=== PATIENT | male | born 1940 | race Caucasian/White ===

== ENCOUNTER 2016-10-21 14:09 | Inpatient (IN) | payer MEDICARE, OTHER ==
[2016-10-21] VITALS (15 sets, daily range): BP systolic 93–119; BP diastolic 58–86; PULSE 65–75; RESP 19–26; O2SAT 93–96
[~2016-10-21] VITALS: Ht 167.6 cm; Wt 68.4 kg
[2016-10-21] MEDS ORDERED: Heparin 1,000 Units/500 mL NS Premix IV ONE (14:23)
[2016-10-21] MEDS ORDERED: Nitroglycerin 50,000 mcg/250 mL D5W Premix IV ONE (14:23)
[2016-10-21] MEDS ORDERED: Heparin 1,000 Unit/mL 10 mL Inj ONE (14:23)
[2016-10-21] MEDS ORDERED: Dextrose 5% 250 ML IV ONE (14:23)
[2016-10-21] MEDS ORDERED: NitroPRUSSIDE 25,000 mCg/mL 2 mL Inj IV ONE (14:24)
[2016-10-21] MEDS ORDERED: 0.9% Sodium Chloride 2,000 ML ONE (14:24)
[2016-10-21] MEDS ORDERED: Heparin 10,000 Unit/1,000 mL NS Premix IV ONE (14:24)
--- NOTE | 2016-10-21 14:25 | ED.REPORT ---
HPI-Chest Pain 40 and Over Date of Service Oct 21, 2016 ED Provider: Dallas Waddell MD Nursing Notes Stated Complaint: STEMI Allergies: Coded Allergies: fentanyl (Verified Allergy, Mild, hyperactive, 10/21/16) General Time Seen by MD: 14:23 Dallas Waddell MD Oct 21, 2016 14:25
[2016-10-21] MEDS ORDERED: fentaNYL-PF 50 mCg/mL 2 mL Inj ONE (14:50)
[2016-10-21] MEDS ORDERED: Phenylephrine/NS-PF 100 mCg/mL 5 mL Syringe IVPUSH ONE (15:12)
[2016-10-21] MEDS ORDERED: Atropine 1 mg/10 mL (Code) Syringe ONE (15:13)
[2016-10-21 15:31] LABS: BASOPHILS % (AUTO) 0.2 % (0-3); EOSINOPHILS % (AUTO) 0 % (0-5); MONOCYTES % (AUTO) 9.2 % (4-12); Mean Corpuscular Hemoglobin 31.2 pg (27.0-35.0); Mean Corpuscular Volume 99.3 fL (81-100); NEUTROPHILS % (AUTO) 76.8 % (40-74); Platelet Count 181 bil/L (150-400)
[2016-10-21 15:50] LABS: INR 1.13 ratio
--- NOTE | 2016-10-21 16:03 | CONS ---
[address] [address] CONSULTATION REPORT PATIENT: BELGICA ARMAS : 1940 MR#: [id number] ADMIT: 10/21/2016 JOB ID: [id number] DATE OF SERVICE: 10/21/2016 CARDIOLOGY CONSULTATION: CHIEF COMPLAINT: Acute UT. HISTORY OF PRESENT ILLNESS: This patient was transferred from [facility]. He was brought in by ambulance. The ambulance transmitted an EKG showing acute anterolateral ST-segment elevation. The patient was brought directly to the laborer syrup machine. I interviewed him on the laborer syrup machine table. The patient was free of any chest discomfort. In fact, he did not remember having any chest discomfort whatsoever. The patient is a very poor historian. He stated that his called the ambulance and he is unsure as to why. He feels he may have had a syncopal event but cannot be sure. He can provide no meaningful history. He is otherwise alert, awake and oriented. PAST MEDICAL HISTORY: The patient denied any hypertension, diabetes, prior strokes, prior UT or any cardiac history. PERSONAL HISTORY: Used to work in the [employer], used to smoke and quit over 20 years ago. 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 After he got , he quit drinking. FAMILY HISTORY: Negative for premature coronary artery disease. PERSONAL HISTORY: Lives with his . He is retired. ALLERGIES: None. MEDICATIONS: The patient does not know. ROS: As per HPI, pt denied any strokes, GI/ bleeding PHYSICAL EXAMINATION: On examination, comfortable. No significant distress noted. Pulse 80, blood pressure 110/70. Neck: Supple. No JVD. Chest: Clear anteriorly. Heart sounds: S1, S2, regular. No gallops. Abdomen: Soft. Extremities: Negative for CCE. 2+ femoral pulses. BIOINFORMATICS ENGINEER: Awake, alert, and oriented. LABORATORIES: Pending. ASSESSMENT AND PLAN: This gentleman presents with an acute anterolateral myocardial infarction. His EKG shows persistent ST elevation. I explained the treatment options available to the patient. The risks and benefits of medical therapy as well as interventional therapy were explained. The patient verbalized understanding and gave us his verbal consent to proceed ahead with intervention. The details of the intervention are reported elsewhere. He will be admitted under the hospitalist service with Cardiology consulting. OLLIE
[2016-10-21 16:12] LABS: TROPONIN T 3.37 ug/L (0.0-0.011)
[2016-10-21] MEDS ORDERED: Polyethylene Glycol (PEG) 17 Gm Powder PO PRN (16:20)
[2016-10-21] MEDS ORDERED: Ondansetron 2 mg/mL 2 mL Inj IVPUSH PRN ×2 (16:20→16:45)
[2016-10-21] MEDS ORDERED: Alum-Mag Hydrox-Simeth 30 mL Suspension PO PRN (16:20)
--- NOTE | 2016-10-21 16:30 | PCM.HPMED ---
Subjective Date of Service Oct 21, 2016 Primary Provider: Admitting Physician: Primary Care Physician: Mahamed Ferrera MD Attending Physician: Ector Wall MD Admit Status: From the Emergency Department, [facility] Telemetry Chief Complaint: Chest pain/abnormal EKG History of Present Illness: Mitch Harmon is a 76 yo male with history of dementia, depression, and hypothyroidism who was transferred from his PCP office on [facility] via EMS for abnormal EKG. Patient has severe dementia and does not recall what happened. History is obtained through his . Apparently, the patient has had cold symptoms for 3 weeks. He went to his PCP's office for a routine checkup today. They were having a hard time taking his BP so they did an EKG, which showed acute anterolateral ST-segment elevation. Rate of 76. Patient's reports that the patient had some SOB, dizziness nausea, and vomiting x1 this morning. He told her that his chest "yi hurts," but was not in any distress. They deny history of cardiovascular disease or any similar symptoms in the past. The patient underwent cardiac catheterization and had a stent placement in the LAD. He denies any symptoms currently. No nausea, vomiting, headache, fever, chills, CP, or SOB. He takes Citalopram, baby ASA, and Levothyroxine at home. He used to take BP medication in the past but stopped for a long time since his BP has been normal. Patient is not on any medication for dementia. Review of Systems: A comprehensive ROS was conducted with the patient and his and is otherwise negative unless stated otherwise in the HPI. 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 He was then diagnosed with bone cancer stage IV and underwent chemo again. He has been in remission for 8 years now. HTN, not taking medication Hypothyroidism Dementia Depression Surgical History Back surgery Family History Father had an ID at unknown age. Social History Hx Alcohol Use: Yes (He was an alcoholic up until 1977. Not drinking currently. ) Hx Substance Use: No Hx Tobacco Use: Yes Smoking Status: Former Smoker (quit in 1987) Living Arrangement: with Family Additional Information Lives with in [place] Exam Vital Signs Vital Sign - Last Date Time Temp Pulse Resp B/P Pulse Ox O2 Delivery O2 Flow Rate FiO2 10/21/16 16:05 72 24 107/59 10/21/16 15:50 36.4 96 Room Air Exam General: well developed, well nourished, pleasantly demented, not in any acute distress HEENT: Normocephalic, atraumatic. External ears without defect. Pupils equal, round, and reactive to light and accommodation. Anicteric sclerae. Pale conjunctiva. Oropharynx free of erythema and cobble stoning with moist mucosa. Neck: Supple with full range of motion. No jugular venous distension. No bruits. Cardiovascular: Regular rate and rhythm no murmurs or gallops appreciated. Pulmonary: Clear to auscultation bilaterally with no crackles, wheezes, or rhonchi. Normal respiratory effort with no use of accessory muscles. No pain to palpation Abdomen: Bowel tones present. Soft, nontender, nondistended. No hepatosplenomegaly or masses appreciated. Extremities: No clubbing, cyanosis, or edema. Right groin access with minimal bleeding. Skin: Normal temperature, turgor, and texture. Neurological: Alert but only oriented to self. Significant decrease in short- term memory (baseline per his ). Cranial nerves grossly intact. Normal muscle strength, tone, and bulk. Moving all extremities. No sensory deficit. Psychiatric: Normal mood and affect. Lab and Diagnostics Result Diagram: 10/21/16 1527 10/21/16 1527 12-lead ECG Sinus rhythm at 76. ST-segment elevation in anterolateral leads. Assessment & Plan 76 yo male with history of dementia, depression, and hypothyroidism who was transferred from his PCP office on [facility] via EMS for STEMI onset prior to arrival. STEMI, POA, active. - s/p cardiac catheterization with LAD stent placement. - Patient has severe dementia and does not recall his symptoms. Currently asymptomatic. - Start dual-antiplatelet therapy with Plavix and ASA 81mg - Patient's BP is low and will hold off on beta blockage or ACEi - Check TSH and lipid panel - Start Atorvastatin 40mg daily - Echo in the morning. - Trend troponin. Currently at 3.37. - Monitor Telemetry - O2 and Morphine available PRN - Cardiac rehab at discharge ANISHA, POA, active. - No known history of kidney disease. Cr 1.66 on admission. - Continue IV fluid at 80mls/hr - Avoid nephrotoxic drugs - Follow clinically Normocytic anemia, POA, active. - unknown acuity. Hgb 8.7 on admission. - Patient is asymptomatic otherwise. - Follow clinically. Dementia, severe, chronic. - Patient is not on any medication. - Ativan PRN anxiety - Follow clinically Hypothyroidism, chronic, presume stable. - check TSH - Resume home medication Levothyroxine 100mcg daily Depression, chronic, presume stable. - Resume home Citalopram Tylenol prn fever/pain Zofran prn nausea Bowel Regimen prn constipation CODE STATUS: DNR/DNI which was confirmed with the patient and has . Patient is admitted under inpatient status with expected length of stay less than 2 midnights due to severity of presenting symptoms, risk of adverse events , and complexity of treatment plan. Pain Evaluation: Adequate Pain Control VTE Prophylaxis: Sub-Q Heparin (Unfractionated) VTE Mechanical Devices: Anti-Embolic stockings Resuscitation Status: DNR/DNI:Do Not Resuscitate/Intubate Time spent 50 minutes Attending Statement The patient was seen and examined with staff. Agree with all attached documentation. Ladonna Rowe DO Oct 21, 2016 16:30 Vern [place] MD Oct 29, 2016 16:47
[2016-10-21] MEDS ORDERED: Atropine 1 mg/10 mL (Code) Syringe IVPUSH PRN (16:45)
[2016-10-21] MEDS: 0.9% Sodium Chloride 1,000 ML IV SCH (17:43)
--- NOTE | 2016-10-21 18:02 | NUR ---
Admit to CCU: Patient arrived to CCU room 2014 at about 1550 via patient bed. Patient is alert to self only (hx of dementia). Patient is is accompanied by his Candice. VSS. Tele: Sinus 60-70's. SpO2: mid to high 90's on RA. Patient denies CP or SOB and does not appear to be in any distress. R groin site is soft, non tender to touch, minimal sanguineous drainage under bio occlusive dressing. Dorsalis pedis pulses palpable and extremities are warm to touch. Patient completed two hours of bed rest. Patient continue of telemetry. Will continue to monitor for bleeding.
[2016-10-21] MEDS: Heparin 5,000 Unit/mL Inj SUBQ SCH ×2 (18:21→19:45)
[2016-10-21] MEDS: Sodium Chloride LOK Flush 10 mL Syringe IVFLUSH PRN (19:40)
[2016-10-21] MEDS: Ipratropium 0.02% 0.5 mg/2.5 mL Inhalation Solution NEB SCH (22:59)
[2016-10-21] MEDS ORDERED: Haloperidol 5 mg/mL Inj IVPUSH PRN (23:00)
[2016-10-22] VITALS (17 sets, daily range): BP systolic 77–119; BP diastolic 42–97; PULSE 55–83; RESP 13–27; O2SAT 90–98
[2016-10-22] MEDS: 0.9% Sodium Chloride 1,000 ML IV SCH (02:57)
[2016-10-22 04:08] LABS: Magnesium 2.1 mg/dL (1.6-2.6)
[2016-10-22 04:09] LABS: TROPONIN T 11.33 ug/L (0.0-0.011)
[2016-10-22] MEDS: Ipratropium 0.02% 0.5 mg/2.5 mL Inhalation Solution NEB SCH ×4 (05:10→16:11)
[2016-10-22] MEDS ORDERED: Furosemide 10 mg/mL 2 mL Inj IVPUSH ONE (05:40)
--- NOTE | 2016-10-22 05:43 | NUR ---
Confusion/Bladder Scan/Respiratory Pt unsteady on feet. 1PA needed. Bed alarm on for safety 2ndary to BROWN scale of 125. Pt has severe dementia. Pleasantly confused. Pt given PRN Ativan 0.5mg. Later Haldol 0.5mg IV as well with some effect. Pt used BSC a few times during the night with poor urine output. Pt was saline locked per MD order as he was tolerating fluids well early on in the shift. MD consuled regarding patient's respiratory status. Pt coarse. Scheduled neb treatments ordered with little effect. Pt bladder scanned resulting in >237ml. Order received for Lasix 20mg IVP and will rescan in 30 minutes. If patient unable to void at that time will consider norris catheter placement for strict I&O and urinary retention. Addendum: 10/22/16 at 0633 by EDUARDA DAVILA RN Pt had a total of 3 (100ml) voids. Pt bladder scanned pre and post urination.
--- NOTE | 2016-10-22 08:35 | DRSVH ---
PROCEDURE: X-RAY CHEST ONE VIEW, PORTABLE ([id number]) INDICATIONS: cough with course breath sounds TECHNIQUE: One view of the chest was acquired. COMPARISON: 08/14/2014 FINDINGS: Surgical changes and devices: None. Lungs and pleura: No pleural effusions or pneumothorax. Lungs show mild bibasilar interstitial prom inence compared to prior exam, possible bronchitis/bronchopneumonia. Mediastinum: Mediastinal contours appear normal. Radiodensity in the right paratracheal region is un changed in probably vascular. Heart size is normal. Bones and chest wall: No suspicious bony lesions. Hypodensity within compression fracture T6 and sev ere compression deformity C5 appear unchanged. Overlying soft tissues appear unremarkable. IMPRESSION: 1. Increased bibasilar markings suspect for bronchitis/bronchopneumonia. Dictated by: Andrey Lopez M.D. on 10/22/2016 at 8:29 Approved by: Andrey Lopez M.D. on 10/22/2016 at 8:32
[2016-10-22] MEDS: Heparin 5,000 Unit/mL Inj SUBQ SCH ×3 (09:35→23:54)
--- NOTE | 2016-10-22 14:47 | NUR ---
Hypotension At 1300 BP=80/50. Urine output 200cc for the day. Bladder scan 4480cc. Notified . 500cc NS bolus one time ordered. Straight cath one time ordered. requested to speak with MD r/t increased slurred speech. stated he would visit pt soon. Sitter at bedside. Pt restless to get OOB, bed alarm on.
--- NOTE | 2016-10-22 15:10 | PCM.PNMED ---
Subjective Date of Service Oct 22, 2016 Subjective Overnight, patient was given a dose of Lasix 20mg IV for coarse breath sound. He also had retained urine but PVR was normal. Normal urine urge this morning. Patient denies any issue this morning. He admits to backache, but denies any CP , SOB, dizziness, headache, nausea, or vomiting. Later in the afternoon, the patient's complains that his speech seemed slurred and increasing confusion. However, when we evaluated the patient, his speech returned to baseline and neurological exam is normal. Patient denies any weakness, headache, nausea, or any other symptoms currently. Exam Vital Signs Vital Sign - Last Date Time Temp Pulse Resp B/P Pulse Ox O2 Delivery O2 Flow Rate FiO2 10/22/16 05:12 66 24 92 Room Air 10/22/16 03:07 111/63 10/21/16 19:20 36.6 Intake and Output 10/21/16 10/21/16 10/22/16 Cumulative From/Thru 15:00 23:00 07:00 10/21/16 16:19 - 10/22/16 05:40 Intake Total 50 ml 595 ml 645 ml Output Total 250 ml 250 ml Balance 50 ml 345 ml 395 ml Intake Oral 250 ml 250 ml IV Total 50 ml 345 ml 395 ml Output Urine Total 250 ml 250 ml # Bowel Movements 0 0 Exam General: well developed, well nourished, pleasantly demented, not in any acute distress HEENT: Normocephalic, atraumatic. Pupils equal, round, and reactive to light and accommodation. Anicteric sclerae. Pale conjunctiva. Oropharynx free of erythema and cobble stoning with dry mucosa. Neck: Supple with full range of motion. No jugular venous distension. No bruits. Cardiovascular: Regular rate and rhythm no murmurs or gallops appreciated. Pulmonary: Mild bibasilar crackles. No wheezes or rhonchi. Normal respiratory effort with no use of accessory muscles. No pain to palpation Abdomen: Bowel tones present. Soft, nontender, nondistended. No hepatosplenomegaly or masses appreciated. Extremities: No clubbing, cyanosis, or edema. Right groin access with minimal bleeding. Nontender to palpation. Skin: Normal temperature, turgor, and texture. Neurological: Alert but only oriented to self. Significant decrease in short- term memory. Cranial nerves grossly intact. Normal muscle strength, tone, and bulk. Moving all extremities. No sensory deficit. Psychiatric: Normal mood and affect. IVs and Medications Medications Reviewed: Medications were reviewed in detail Lab and Diagnostics Result Diagram: 10/22/1625410/22/16254 12-lead ECG Sinus rhythm at 76. ST-segment elevation in anterolateral leads. Assessment & Plan 76 yo male with history of dementia, depression, and hypothyroidism who was transferred from his PCP office on [facility] via EMS for STEMI onset prior to arrival. STEMI, POA, improved. - s/p cardiac catheterization with LAD stent placement on 10/21/16. - Patient has severe dementia and does not recall his symptoms. Currently asymptomatic. - Continue dual-antiplatelet therapy with Plavix and ASA 81mg - Patient's BP is low and will hold off on beta blockage or ACEi - Normal lipid panel. TSH is overcorrected. - Continue Atorvastatin 40mg daily - Echo report pending. - Markedly elevated Troponin. Continue to trend troponin. Currently at 11.3 - Monitor Telemetry - O2 and Morphine available PRN - Cardiac rehab at discharge. Confusion, acute, resolved. - Patient's was concerned of stroke-like symptoms, which rapidly resolved. - Follow clinically and if patient has any change in mental status, slurred speech, or one-sided weakness, will consider CT brain. Renal insufficiency, unknown acuity, POA, active. - No known history of kidney disease, but no available previous labs to compared. Cr 1.66 on admission, trend down slightly. Possibly chronic kidney disease. - D/C IVF given crackles on lung exam that required Lasix. Encourage oral hydration. - Avoid nephrotoxic drugs - Follow clinically Normocytic anemia, POA, active. - unknown acuity. Hgb 8.7 on admission. H/H stable. - Patient is asymptomatic otherwise. - Follow clinically. Dementia, severe, chronic. - Patient is not on any medication. - Ativan PRN anxiety. Add Seroquel PRN agitation. - Follow clinically Hypothyroidism, chronic, presume stable. - TSH is 0.070. Will decrease home Levothyroxine to 88mcg daily. Patient takes 100mcg at home. - Follow up with PCP as outpatient. Depression, chronic, presume stable. - Resume home Citalopram Tylenol prn fever/pain Zofran prn nausea Bowel Regimen prn constipation CODE STATUS: DNR/DNI which was confirmed with the patient and has . Patient is admitted under inpatient status with expected length of stay less than 2 midnights due to severity of presenting symptoms, risk of adverse events , and complexity of treatment plan. Pain Evaluation: Adequate Pain Control VTE Prophylaxis: Sub-Q Heparin (Unfractionated) VTE Mechanical Devices: Anti-Embolic stockings Resuscitation Status: DNR/DNI:Do Not Resuscitate/Intubate Nieves Martinez MD Oct 22, 2016 07:30 Ladonna Rowe DO Oct 22, 2016 15:06
[2016-10-22] MEDS ORDERED: Lidocaine 2% 5 mL Topical Jelly TOPICAL ONE (16:40)
--- NOTE | 2016-10-22 18:05 | NUR ---
Bladder scan Bladder scan correction from previous note, 480cc. Failed straight cath r/t pain and resistance. Notified MD, requesting lidocaine gel. Pt got up to BSC with sitter with SBA and voided 75cc. Next bladder scan 300cc. Administered 500cc NS bolus, SV=387/63 now.
[2016-10-23] VITALS (11 sets, daily range): BP systolic 72–134; BP diastolic 41–74; PULSE 68–92; RESP 20–26; O2SAT 94–98
--- NOTE | 2016-10-23 01:09 | NUR ---
P: Restless, impulsive, c/o "my spine hurts all the time" I: tylenol E: HS tylenol given. Pt has been sleeping since. Pt w/ chronic dementia not always easy to redirect due to impulsiveness. Pulling at IV sites, attempting to remove tele leads and monitor sat. Removes 02. One person assist to BSC. Flatus only. No void. Will bladder scan pt after void and attempt to do a straight cath if necessary. Tele SR. SBP 70-100s, DBP 40-50s. Pt turning self in bed and arm not always in a good position for BP reading. Held 2030 lopressor dose. Some sleep apnea noted early in sleep. Now sats range 88-91% on RA. Attempts to place NC w/out waking pt unsuccessful. Pt quickly pulls NC off. Spoke w/ Dr. Bustamante regarding plan for PRV, low BPs and sats. If MAP > 65 when arm in good position, call. Bed alarm and sitter for pt safety.
--- NOTE | 2016-10-23 03:11 | NUR ---
P: PVR per bladder scan = 460ml I: Attempt straight cath and also coude cath E: Pt voided small amount of urine when up to BSC, eden pink tinged. PVR = 460ml. Staff members x 2 attempt to straight cath w/ 16F meeting resistance and again using a small coude again meeting resistance along with using lidocaine ointment help w/ discomfort. Pt cooperating w/ both cath attempts well. Pt denies urge to void. Denies abdominal pain. Called and updated Dr. Bustamante in regards catherization attempt. Continuing w/ low BPs and held 2030 and 0230 lopressor doses. Tele SR. Afebrile. Pt now keeping on 2L NC when going back to sleep.
[2016-10-23 03:14] LABS: BASOPHILS % (AUTO) 0.1 % (0-3); EOSINOPHILS % (AUTO) 0.2 % (0-5); Mean Corpuscular Volume 100.3 fL (81-100); NEUTROPHILS % (AUTO) 74.1 % (40-74); Platelet Count 194 bil/L (150-400)
[2016-10-23 04:38] LABS: Magnesium 2.2 mg/dL (1.6-2.6); Phosphorus 3.2 mg/dL (2.5-4.9)
[2016-10-23 04:40] LABS: TROPONIN T 9.45 ug/L (0.0-0.011)
[2016-10-23] MEDS: Ipratropium 0.02% 0.5 mg/2.5 mL Inhalation Solution NEB SCH ×3 (09:18→19:50)
--- NOTE | 2016-10-23 09:47 | DI95 ---
[address] [address] INTERVENTIONAL CARDIAC CATHETERIZATION PATIENT: BELGICA ARMAS : 1940 MR#: [id number] ADMIT: 10/21/2016 JOB ID: [id number] DATE OF SERVICE: 10/21/2016 PROCEDURE: 1. Selective right and left coronary angiography. 2. Left heart catheterization. 3. Percutaneous intervention on the LAD. INDICATION: Acute anterior myocardial infarction. PROCEDURAL DETAILS: The reader and the coders are referred to the procedure log for complete details. Briefly, it was done via right femoral approach using a 6-Telugu system. ANGIOGRAPHIC FINDINGS: 1. Right coronary artery has a very anterior takeoff and it has a sharp turn proximally. Past the takeoff of the conus branch, there is an eccentric 50% lesion. 2. The right coronary artery is a dominant vessel. 3. Left main: No significant disease. 4. LAD in its proximal segment has a tight 99% lesion. LARA 1-2 flow is seen in the rest of the vessel. 5. Circumflex is a moderate caliber vessel. 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 The aneurysm measures about 6 mm. The vessel itself is about 3 mm in diameter. 6. Left heart catheterization was a hand injection and suggested anteroapical hypokinesis. INTERVENTIONAL REPORT: We then proceeded ahead with an intervention on the LAD. This was balloon dilated and then stented with a 3.0 x 15 mm vision bare metal stent. The reason I chose a bare metal stent is because there was concern about patient's compliance and I did not wish to subject him to long-term dual antiplatelet therapy.
[2016-10-23] MEDS: Heparin 5,000 Unit/mL Inj SUBQ SCH ×2 (10:03→16:47)
--- NOTE | 2016-10-23 11:32 | PCM.PNMED ---
Subjective Date of Service Oct 23, 2016 Subjective was concerned about his function at home, afraid to take him home pt is more conversive, lucid thinks that he is back to his baseline. pt c/o fullness of bladder, reported urinary retention PVR >460cc overnight, failed multiple attempt to cath due to resistance pt admitted that he had to put pressure on urination once urine stream slows down to finish urination. currently denied suprapubic pain, back pain, labs showed worsening renal function, BP trends better, but still low 100s, metoprolol changed to 12.5mg q12h awaits PT eval. pt denied chest pain, SOB. Exam Vital Signs Vital Sign - Last Date Time Temp Pulse Resp B/P Pulse Ox O2 Delivery O2 Flow Rate FiO2 10/23/16 09:18 70 24 97 Nasal Cannula 2.00 10/23/16 08:00 36.8 102/67 Intake and Output 10/22/16 10/22/16 10/23/16 Cumulative From/Thru 15:00 23:00 07:00 10/21/16 16:19 - 10/23/16 06:12 Intake Total 1300 ml 400 ml 2345 ml Output Total 475 ml 100 ml 825 ml Balance 825 ml 300 ml 1520 ml Intake Oral 800 ml 400 ml 1450 ml IV Total 500 ml 895 ml Output Urine Total 475 ml 100 ml 825 ml # Bowel Movements 0 0 0 Exam NAD, comfortably laying down on the bed no JVD, MMM, no LAD RRR, nl s1, s2 no mrg CTAB, no w,c S,ND,NT,normoactive BS+ EXT: warm, no edema BLE, Rt groin no hematoma, bruit, Right DP2/2 IVs and Medications Medications Reviewed: Medications were reviewed in detail Lab and Diagnostics Result Diagram: 10/23/16 03010/23/16 030 12-lead ECG Sinus rhythm at 76. ST-segment elevation in anterolateral leads. Assessment & Plan 76 yo male with history of dementia, depression, and hypothyroidism who was transferred from his PCP office on [facility] via EMS for STEMI onset prior to arrival. acute, active STEMI, POA, s/p cardiac catheterization SUSAN on LAD on 10/21/16 by . Patient was started on DAPT, BB, ACEI. -pt remained asymptomatic, no complication from cath noticed. -continue telemetry, -Given MAP borderline low 60-65, BB decreased to 12.5mg q12h, likely needs slow titration in the clinic upon d/c -continue DAPT, lisinopril2.5mg qd acute encephalopathy, developed post-cath period, likely delirium in the setting of chronic cognitive dysfunction, no focal deficit noticed on exam, -pt remained neurologically intact, MS seems at baseline per , continue neurocheck qshift for now Renal insufficiency, unknown acuity, POA, likely CKD, however No known history of kidney disease, but no available previous labs to compared. Cr 1.66 on admission -renal got worse, likely due to contrast load from cath or post-obstructive uropathy - D/Bryce IVF given crackles on lung exam that required Lasix. Encourage oral hydration. - Avoid nephrotoxic drugs -trends renal function for now, small bolus needed post-obstructive uropathy,POA, likely due to underling BPH given hx, -start flomax today, will attempt in/out cath q4-6th with bladder scan. -continue trial of voiding. chronic, stable Normocytic anemia, POA, active. - unknown acuity. Hgb 8.7 on admission. H/H stable. - Patient is asymptomatic otherwise. - Follow clinically. Dementia, severe, chronic. - Patient is not on any medication. - Ativan PRN anxiety. Add Seroquel PRN agitation. - Follow clinically Hypothyroidism, chronic, presume stable. - TSH is 0.070. Will decrease home Levothyroxine to 88mcg daily. Patient takes 100mcg at home. - Follow up with PCP as outpatient. Depression, chronic, presume stable. - Resume home Citalopram Tylenol prn fever/pain Zofran prn nausea Bowel Regimen prn constipation CODE STATUS: DNR/DNI which was confirmed with the patient and has . dispo: likely 1-2days, appreciate PT assessment, can benefit from VTE Prophylaxis: Sub-Q Heparin (Unfractionated) VTE Mechanical Devices: Anti-Embolic stockings Resuscitation Status: DNR/DNI:Do Not Resuscitate/Intubate Time spent 35min Nieves Martinez MD Oct 23, 2016 11:32
--- NOTE | 2016-10-23 11:55 | NUR ---
Social Work: Initial Assessment/Multidisciplinary Rounds D: Per EMR review, pt is a 76 year old male admitted for STEMI. Pt is Medicare with for Life supplement; pt has no LTC insurance or current VA benefits. NOK is Candice Harmon, , . PCP is Mahamed Ferrera MD. AD completed- WINDOW INSTALLER requested copy for chart. Redmit score is low, 2/8. WINDOW INSTALLER met with the patient and at bedside. Sw role explained, discharge planning checklist and contact information provided. Pt and spouse live in [place]. Most of the assessment information provided from as pt has dementia and is a poor historian. Pt uses no DME and is I with ambulation. Pt requires 24/7 supervision which is provided by the . Family friends occasionally provide supervision so that the can grocery shop. Pt has never had HH or skilled rehab. Pt does not drive and relies on the for transport. has concerns about the pt's moth exterminator care. She anticipates taking him home at discharge but knows that she will not be able to sustainably provide 24/7 care care home. She states that the pt requires supervision but is I with ambulation, toileting, dressing and bathing. WINDOW INSTALLER provided the pt's with the senior resource guide, caregiver support group resources, adult day health information, in-home caregiving resources and Medicaid/HS LAURY info. She is very appreciative of this. WINDOW INSTALLER also discussed a possible home health referral for RN, PT and WINDOW INSTALLER. HH CHOICE LIST PROVIDED- preference would be for [facility] if the provider chooses to order this. Multidisciplinary Rounds. Pt still requires hospitalization and will be here another 1-2 days. Pt unable to urinate and still working on BP control. WINDOW INSTALLER informed MD of request for HH from pt's spouse. Order not placed at this time. A: Pt who has baseline dementia and 24/7 care from . P: Anticipate pt to discharge home with possible home health; [facility] preference. WINDOW INSTALLER will provide referral once orders are received from . WINDOW INSTALLER to continue to follow to assess for discharge needs. JOHNY Kaplan Addendum: 10/23/16 at 1217 by NADIYA LEYVA SS Amended: Links added.
[2016-10-23] MEDS ORDERED: 0.9% Sodium Chloride 500 ML IV ONE (14:05)
[2016-10-23] MEDS ORDERED: Lidocaine 2% 5 mL Topical Jelly TOPICAL ONE (14:05)
--- NOTE | 2016-10-23 18:31 | NUR ---
Mentation/BP/Norris Patient remains confused to place and time, requiring a sitter. He is extremely impulsive wanting to get oob frequently. Not able to be left alone safely. BP low, 70/40 this afternoon after AM meds. MD aware and ordered a 500 ml NS bolus. This was helpful. Last BP 119/60. Patient with minimal urinary output other that dribbling. MD aware and order to attempt norris once again using Lidocaine jelly first. This was done and MD came into the room to assist and managed to get norris in. Norris drained 700 mls urine once norris in place. Patient remains impulsive not understanding norirs, wanting to pull it out. Sitter helpful. Continuing with POC and to monitor closely.
[2016-10-23] MEDS: Sodium Chloride LOK Flush 10 mL Syringe IVFLUSH PRN (19:56)
[2016-10-23] MEDS ORDERED: CITA40TA13 PO (20:17)
[2016-10-23] MEDS ORDERED: ASPI-973 PO (20:17)
[2016-10-23] MEDS ORDERED: LEVO100T6 PO (20:17)
[2016-10-23] MEDS ORDERED: POTA10CA42 PO (20:17)
--- NOTE | 2016-10-23 20:27 | NUR ---
P) LOC/ Respiratory Pt. initially agitated, climbing out of bed every 5 minutes x8, unable to understand or remember catheter, pulled on norris multiple times until he is bleeding a little from head of penis. Lungs with coarse breath sounds and faint crackles in bases bilat. Moist sounding cough but has not spit anything out. I) Meds per 's orders, sitting in room with pt. Pt. also received neb. tx. E) Currently resting quietly with eyes closed.
[2016-10-23 20:38] LABS: APPEARANCE,URINE HAZY (CLEAR,HAZY); COLOR,URINE STRAW (YELLOW); OCCULT BLOOD,URINE LARGE (NEGATIVE); PH,URINE 5.5 (5.0-8.0); UROBILINOGEN,URINE NORMAL (NORMAL)
[2016-10-24] VITALS (15 sets, daily range): BP systolic 83–129; BP diastolic 42–68; PULSE 66–82; RESP 20–26; O2SAT 95–98
[2016-10-24] MEDS: Heparin 5,000 Unit/mL Inj SUBQ SCH ×3 (00:39→18:04)
[2016-10-24 03:37] LABS: BASOPHILS % (AUTO) 0.1 % (0-3); EOSINOPHILS % (AUTO) 0.4 % (0-5); MONOCYTES % (AUTO) 9.7 % (4-12); Mean Corpuscular Hemoglobin 31.5 pg (27.0-35.0); Mean Corpuscular Volume 99.4 fL (81-100); NEUTROPHILS % (AUTO) 72.9 % (40-74); Platelet Count 202 bil/L (150-400)
[2016-10-24 04:10] LABS: Magnesium 2.1 mg/dL (1.6-2.6); Phosphorus 2.7 mg/dL (2.5-4.9)
--- NOTE | 2016-10-24 05:03 | NUR ---
Assumed care took over care @ midnight, pt has sitter in room for constant re-orientation, Room air , saline lock x 2 , [employer] CDI, Tele: ,IVCD 60-90
[2016-10-24] MEDS ORDERED: Ipratropium 0.02% 0.5 mg/2.5 mL Inhalation Solution NEB PRN (10:47)
--- NOTE | 2016-10-24 12:43 | NUR ---
Gave access and faxed facesheet to PATO and Veronique Lieberman per conversation with at bedside and MD order. Updated ELECTRICAL ASSEMBLY TECHNICIAN
--- NOTE | 2016-10-24 12:49 | NUR ---
Low BP Noon SBP's 88-91, MAP mid 50's, asymptomatic, yellow team cook paged @ 1250 to be made aware.
--- NOTE | 2016-10-24 13:17 | DRSVH ---
PROCEDURE: CT BRAIN WITHOUT CONTRAST ([id number]) INDICATIONS: Slurred speech TECHNIQUE: Noncontrast 4.5 mm thick angled axial sections acquired from the foramen magnum to the vertex, with c oronal reformats. COMPARISON: [facility], MR, BRAIN WITHOUT CONTRAST, 05/15/2014, 12:45. FINDINGS: Image quality: Excellent. CSF spaces: Basal cisterns are patent. No extra-axial fluid collections. The ventricles are symmet lily in size and shape. Brain: No intracranial bleeds or masses. There is cerebral volume loss for age, with resultant vent ricular and sulcal prominence. There are periventricular and deep white matter chronic small vessel ischemic changes. There is intracranial internal carotid artery atherosclerosis. Skull and face: Calvarium and visualized facial bones appear intact, without suspicious lesions. Sinuses: Visualized sinuses and mastoids are clear. IMPRESSION: Mild microvascular atherosclerotic change in the deep white matter of each hemisphere, no mass or stroke is found, no intracranial hemorrhage is suspected. Dictated by: Ravi Johnson M.D. on 10/24/2016 at 13:15 Approved by: Ravi Johnson M.D. on 10/24/2016 at 13:15
--- NOTE | 2016-10-24 14:03 | NUR ---
VA INFORMATION: Spoke with Maegan in patient access at [facility] and this patient is enrolled with VA, he is non service connected and holds MCR A&b and also has . He is scheduled to be seen at [facility] October at 11 AM. When patient is transferred to SNF this appointment needs to be known and we need to make sure coordination is in place so patient makes this appointment. Updated SKIP HOIST OPERATOR
--- NOTE | 2016-10-24 14:42 | NUR ---
Evaluation completed. Please go to "Notes" then click on "Assessments and Notes" (bottom left corner of screen). Then select appropriate discipline tab on top of screen.
[2016-10-24] MEDS ORDERED: Benzocaine-Menthol Lozenge 2/Pkg PO PRN (15:15)
[2016-10-24] MEDS ORDERED: 0.9% Sodium Chloride 500 ML IV ONE (15:15)
--- NOTE | 2016-10-24 15:40 | PCM.PNMED ---
Subjective Date of Service Oct 24, 2016 Subjective No acute event overnight. Medrano catheter in place. Today, patient denies any symptoms or discomfort. He keeps asking "where am I?" but was easily redirected. His is concerned about his slurred speech and confusion. She also expresses concerns about taking care of him at home and requests for SNF placement. Exam Vital Signs Vital Sign - Last Date Time Temp Pulse Resp B/P Pulse Ox O2 Delivery O2 Flow Rate FiO2 10/24/16 08:00 79 10/24/16 07:41 36.4 20 111/58 97 Room Air 10/23/16 09:18 2.00 Intake and Output 10/23/16 10/23/16 10/24/16 Cumulative From/Thru 15:00 23:00 07:00 10/21/16 16:19 - 10/24/16 05:05 Intake Total 630 ml 0 ml 2975 ml Output Total 850 ml 400 ml 2075 ml Balance -220 ml -400 ml 900 ml Intake Oral 630 ml 0 ml 2080 ml IV Total 895 ml Output Urine Total 850 ml 400 ml 2075 ml # Bowel Movements 0 Exam General: well developed, well nourished, pleasantly demented, not in any acute distress HEENT: Normocephalic, atraumatic. Pupils equal, round, and reactive to light and accommodation. Anicteric sclerae. Pale conjunctiva. Oropharynx free of erythema and cobble stoning with dry mucosa. Neck: Supple with full range of motion. No jugular venous distension. No bruits. Cardiovascular: Regular rate and rhythm no murmurs or gallops appreciated. Pulmonary: Mild bibasilar crackles. No wheezes or rhonchi. Normal respiratory effort with no use of accessory muscles. No pain to palpation Abdomen: Bowel tones present. Soft, nontender, nondistended. No hepatosplenomegaly or masses appreciated. Extremities: No clubbing, cyanosis, or edema. Right groin access with minimal bleeding. Nontender to palpation. Skin: Normal temperature, turgor, and texture. Neurological: Alert but only oriented to self. Significant decrease in short- term memory. Cranial nerves grossly intact. Normal muscle strength, tone, and bulk. Moving all extremities. No sensory deficit. Psychiatric: Normal mood and affect. IVs and Medications Medications Reviewed: Medications were reviewed in detail Lab and Diagnostics Result Diagram: 10/24/16 0320 10/24/16 0320 X-Rays, CTs and MRIs PROCEDURE: CT BRAIN WITHOUT CONTRAST IMPRESSION: Mild microvascular atherosclerotic change in the deep white matter of each hemisphere, no mass or stroke is found, no intracranial hemorrhage is suspected. Dictated by: Ravi Johnson M.D. on 10/24/2016 at 13:15 12-lead ECG Sinus rhythm at 76. ST-segment elevation in anterolateral leads. Assessment & Plan 76 yo male with history of dementia, depression, and hypothyroidism who was transferred from his PCP office on [facility] via EMS for STEMI onset prior to arrival. acute, active STEMI, POA, s/p cardiac catheterization SUSAN on LAD on 10/21/16 by . Patient was started on DAPT, BB, ACEI. -pt remained asymptomatic, no complication from cath noticed. -continue telemetry -Given MAP borderline low 60-65, will D/C both ACEi and BB. Monitor clinically. -continue DAPT. Acute encephalopathy, developed post-cath period, likely delirium in the setting of chronic cognitive dysfunction, no focal deficit noticed on exam, -pt remained neurologically intact, MS seems at baseline per , continue neurocheck qshift for now. -PT is concerned of taxia gait and patient's continues to notice -CT brain revealed mild microvascular atherosclerotic change in the deep white matter of each hemisphere, no mass or stroke is found, no intracranial hemorrhage is suspected. -Patient will need to be Sore throat, POA, active. - Patient admits to sore throat prior to admission, which got worse after the catheterization. His is concerned that the patient is having a hard time to swallow. - Throat appears mildly erythematous on exam with no cobblestoning. - Will check ALLIE strep - Swallow eval by speech. - Cepacol PRN sore throat. Renal insufficiency, unknown acuity, POA, likely CKD, however No known history of kidney disease, but no available previous labs to compared. Cr 1.66 on admission - renal got worse yesterday, likely due to contrast load from cath or post- obstructive uropathy. Improved slightly today. - D/Bryce IVF given crackles on lung exam that required Lasix. Encourage oral hydration. - Avoid nephrotoxic drugs - trends renal function for now, small IV bolus as needed. post-obstructive uropathy,POA, likely due to underling BPH given hx, -Continue flomax, will attempt in/out cath q4-6th with bladder scan. -continue trial of voiding. -Consider PRN Medrano for PVR volume >200. chronic, stable Normocytic anemia, POA, active. - unknown acuity. Hgb 8.7 on admission. H/H stable. - Patient is asymptomatic otherwise. - Follow clinically. Dementia, severe, chronic. - Patient is not on any medication. - Ativan PRN anxiety. Add Seroquel PRN agitation. - Follow clinically Hypothyroidism, chronic, presume stable. - TSH is 0.070. Will decrease home Levothyroxine to 88mcg daily. Patient takes 100mcg at home. - Follow up with PCP as outpatient. Repeat TSH in 6-8 weeks. Depression, chronic, presume stable. - Resume home Citalopram Tylenol prn fever/pain Zofran prn nausea Bowel Regimen prn constipation CODE STATUS: DNR/DNI which was confirmed with the patient and has . Patient was admitted under inpatient status for expected length of stay > 2midnights due to complexity of his medical issues and treatment plan. dispo: Patient's admits that she cannot take care of him at home and requests for SNF. template layout worker will follow for SNF placement. Patient will likely be discharged tomorrow to SNF. Pain Evaluation: Adequate Pain Control GI Prophylaxis: H2 ronda VTE Prophylaxis: Sub-Q Heparin (Unfractionated) VTE Mechanical Devices: Anti-Embolic stockings Resuscitation Status: DNR/DNI:Do Not Resuscitate/Intubate Ladonna Rowe DO Oct 24, 2016 12:12 Ladonna Rowe DO Oct 24, 2016 12:12
--- NOTE | 2016-10-24 16:11 | NUR ---
Social Work: Continued Discharge Planning/Multidisciplinary Rounds. D: Pt discussed in am rounds. Pt is not medically stable for discharge at this time but is anticipated to be ready on Thursday. Current recommendation from PT is SNF as pt is far from his mobility baseline. Pt's capacity for self care is concerning even with pt's present to provide assistance. has placed order to arrange for SNF for the patient. IMPROVEMENT MANAGER met with the pt and at [facility] to discuss SNF recommendation. The pt's is happy to hear that the pt may qualify for rehab and would like for [facility] Karla Cr and Veronique Lieberman to be referred. SNF CHOICE LIST PROVIDED. She understands that it will be a short rehab stay and intends to continue to work on a LTC plan for the patient during his rehab admission. The patient has an appointment with the Karla Cr [facility] at the [facility] on the 04 of November at 11:00am to apply for VA benefits. This is an important appointment as pt may be able to gain access to VA resources for LTC. Pt's is aware of this and will work with the accepting SNF to ensure pt is at this appointment. [facility] Karla Cr and Veronique Lieberman have been referred. IMPROVEMENT MANAGER [facility] She states they can accept the patient with Dr. Ruth to follow. A: pt who will require continue rehab for further progression toward baseline functional mobility P: Anticipate pt to discharge to skilled rehab; [facility] karla Cr has accepted with Dr. Ruth to follow. Veronique Lieberman is still reviewing JOHNY Kaplan
--- NOTE | 2016-10-24 18:47 | NUR ---
Retension/Lung Sounds/Hypotension Norris catheter pulled at 1000 per Md request. Bladder scanned around 1400, 175cc result. 1700 still no void, bladder scan revealed 275cc, Md made aware, order for norris placement. 250cc return. Lungs coarse much more significant then a.m., frequent moist cough, JVD, made aware, Furosemide 20mg po ordered & BP 30 minutes post admin, result 116/61 (74), NOC provider to be notified if MAP <58, STAT chest xray ordered as well. Patient hypotensive towards end of shift, see computer for readings, 500cc bolus admin w/ little effect, for which provider stated to call NOC if MAP <58.
--- NOTE | 2016-10-24 18:58 | DRSVH ---
PROCEDURE: X-RAY CHEST ONE VIEW, PORTABLE ([id number]) INDICATIONS: Cough TECHNIQUE: One view of the chest was acquired. COMPARISON: [facility], CR, XR CHEST 1VW (PORTABLE), 10/21/2016, 22:53. FINDINGS: Surgical changes and devices: None. Lungs and pleura: There is an overall appearance of increased pulmonary vascularity. Focal air opacit y is noted in the left base as well as minimal costophrenic angle blunting. Mediastinum: Mediastinal contours appear normal. Heart size is normal. Bones and chest wall: No suspicious bony lesions. Overlying soft tissues appear unremarkable. IMPRESSION: Increased pulmonary vascularity suggestive of edema. In addition, there is likely a trace left effusion as well focal left basilar opacity possibly representing focal fluid, atelectasis or p otentially developing airspace disease such as pneumonia. Dictated by: Katia Carmona M.D. on 10/24/2016 at 18:55 Approved by: Katia Carmona M.D. on 10/24/2016 at 18:56
[2016-10-25] VITALS (8 sets, daily range): BP systolic 90–131; BP diastolic 51–72; PULSE 69–87; RESP 17–26; O2SAT 93–100
[2016-10-25] MEDS: Heparin 5,000 Unit/mL Inj SUBQ SCH ×3 (00:33→17:17)
--- NOTE | 2016-10-25 06:08 | NUR ---
Mentation Pt alert to self, impulsive throughout shift and pulls at norris/tele; redirectable with instruction. Able to rest throughout shift. VSS. Tele SR 70s.
--- NOTE | 2016-10-25 09:00 | NUR ---
Transfer to [facility] Report to Yen Hurley RN. Pt transferred by wheelchair. All belongings gathered and transported with pt to room 238/1
--- NOTE | 2016-10-25 09:26 | NUR ---
Transfer Pt brought over in w/ch from room 2015 to room 238-1. Sitter present upon arrival. Pt alert to self, reminded why he is here. Sitting in chair at bedside eating breakfast.
--- NOTE | 2016-10-25 10:56 | NUR ---
Social Work: Readiness for Discharge/Multidisciplinary Rounds D: Pt discussed in am rounds. From a medical perspective the pt is ready for discharge to rehab however the pt is with a sitter. SENIOR PRINCIPAL PROCESS ENGINEER informed MD that pt will need to be free of sitter for 24 hours prior to discharge to SNF. MD will discuss this with pt's RNs at [facility]. SENIOR PRINCIPAL PROCESS ENGINEER spoke with the pt's via telephone. SENIOR PRINCIPAL PROCESS ENGINEER informed her that the pt is not ready for discharge due to sitter. SENIOR PRINCIPAL PROCESS ENGINEER informed her that [facility] the sitter is d/c'd for 24 hours. She agrees with this and will await update from MD and team tomorrow. A: Pt who lives at home with his but will require skilled rehab for further strengthening and improvement towards baseline mobility. P: Anticipate pt to discharge to skilled rehab once free from sitter; [facility] Marcelo Cr has accepted with Dr. Ruth to follow and Veronique Lieberman is reviewing JOHNY Kaplan
--- NOTE | 2016-10-25 11:50 | NUR ---
low BP MD notified via txt of BP 90/51.
--- NOTE | 2016-10-25 14:36 | PCM.PNMED ---
Subjective Date of Service Oct 25, 2016 Subjective pt was confused, needed sitter at the bedside, PT recommended SNF, accepted to [facility] MV pt denied chest pain, SOB, BP trend is better, 120-130s, intermittently dropped to 90s Exam Vital Signs Vital Sign - Last Date Time Temp Pulse Resp B/P Pulse Ox O2 Delivery O2 Flow Rate FiO2 10/25/16 11:38 36.9 69 24 90/51 95 Room Air 10/23/16 09:18 2.00 Intake and Output 10/24/16 10/24/16 10/25/16 Cumulative From/Thru 15:00 23:00 07:00 10/21/16 16:19 - 10/25/16 05:40 Intake Total 1676 ml 300 ml 4951 ml Output Total 150 ml 900 ml 3125 ml Balance 1526 ml -600 ml 1826 ml Intake Oral 1176 ml 300 ml 3556 ml IV Total 500 ml 1395 ml Output Urine Total 150 ml 900 ml 3125 ml # Bowel Movements 1 1 Exam NAD, comfortably laying down on the bed no JVD, MMM, no LAD RRR, nl s1, s2 no mrg CTAB, no w,c S,ND,NT,normoactive BS+ warm, no edema IVs and Medications Medications Reviewed: Medications were reviewed in detail Lab and Diagnostics Result Diagram: 10/24/16 0320 10/25/16 0450 X-Rays, CTs and MRIs PROCEDURE: CT BRAIN WITHOUT CONTRAST IMPRESSION: Mild microvascular atherosclerotic change in the deep white matter of each hemisphere, no mass or stroke is found, no intracranial hemorrhage is suspected. Dictated by: Ravi Johnson M.D. on 10/24/2016 at 13:15 12-lead ECG Sinus rhythm at 76. ST-segment elevation in anterolateral leads. Assessment & Plan 76 yo male with history of dementia, depression, and hypothyroidism who was transferred from his PCP office on [facility] via EMS for STEMI onset prior to arrival. acute, active STEMI, POA, s/p cardiac catheterization SUSAN on LAD on 10/21/16 by . Patient was started on DAPT, BB, ACEI. -pt remained asymptomatic, no complication from cath noticed. -continue telemetry -Given MAP borderline low 60-65 with ACEi and BB stopped yesterday, resume today -continue DAPT. Acute encephalopathy, developed post-cath period, likely delirium in the setting of chronic cognitive dysfunction, no focal deficit noticed on exam, CT brain revealed mild microvascular atherosclerotic change in the deep white matter of each hemisphere, no mass or stroke is found, no intracranial hemorrhage is suspected. -pt remained neurologically intact, however required 1:1, which delayed d/c -neuro check qshift, try to avoid chemical/physical restraints Sore throat, POA, active. Patient admits to sore throat prior to admission, which got worse after the catheterization. His is concerned that the patient is having a hard time to swallow. throat swab negative. - Swallow eval by speech. - Cepacol PRN sore throat. Renal insufficiency, unknown acuity, POA, likely CKD, however No known history of kidney disease, but no available previous labs to compared. Cr 1.66 on admission - renal got worse yesterday, likely due to contrast load from cath or post- obstructive uropathy. Improved slightly today. - D/Bryce IVF given crackles on lung exam that required Lasix. Encourage oral hydration. - Avoid nephrotoxic drugs - trends renal function for now, small IV bolus as needed. post-obstructive uropathy,POA, likely due to underling BPH given hx, -Continue flomax, failed TOV again yesterday, likely d/c with norris to SNF. -Consider PRN Norris for PVR volume >200. chronic, stable Normocytic anemia, POA, active. - unknown acuity. Hgb 8.7 on admission. H/H stable. - Patient is asymptomatic otherwise. - Follow clinically. Dementia, severe, chronic. - Patient is not on any medication. - Ativan PRN anxiety. Add Seroquel PRN agitation. - Follow clinically Hypothyroidism, chronic, presume stable. - TSH is 0.070. Will decrease home Levothyroxine to 88mcg daily. Patient takes 100mcg at home. - Follow up with PCP as outpatient. Repeat TSH in 6-8 weeks. Depression, chronic, presume stable. - Resume home Citalopram Tylenol prn fever/pain Zofran prn nausea Bowel Regimen prn constipation CODE STATUS: DNR/DNI which was confirmed with the patient and has . dispo: SNF tomorrow, d/c delayed as pt required 1:1, needs 24hr clearance w/o sitter. GI Prophylaxis: H2 ronda VTE Prophylaxis: Sub-Q Heparin (Unfractionated) VTE Mechanical Devices: Anti-Embolic stockings Resuscitation Status: DNR/DNI:Do Not Resuscitate/Intubate Time spent 35min Nieves Martinez MD Oct 25, 2016 13:05
--- NOTE | 2016-10-25 18:05 | NUR ---
Behavior Pt cooperative and directable Put pulls at tele, norris securing device and norris regularly. one to one sitter at bedside Sitter reports pt impulsive. Pt requires frequent reminders of why he is here. 1 person assist with FWW for mobility. c/o occas back pain relieved with tylenol. Awaiting placement.
[2016-10-26] VITALS (10 sets, daily range): BP systolic 97–140; BP diastolic 58–74; PULSE 68–90; RESP 16–20; O2SAT 93–98
[2016-10-26] MEDS: Heparin 5,000 Unit/mL Inj SUBQ SCH ×3 (00:51→17:42)
--- NOTE | 2016-10-26 06:19 | NUR ---
Behavior assumed pt care at 1900, pt drowsy at beginning of shift, at 2200, pt awake, baseline confusion, up/down multiple times, impulsive, attempted to pull IV/norris/tele off, pt had one dose of PRN Ativan at 0257, effective, bed alarm on for safety, room close to nurses station.
--- NOTE | 2016-10-26 08:42 | NUR ---
Mobility 0715 when getting pt up to BR noted gait unsteady, LOB. reports dizziness. VSS
--- NOTE | 2016-10-26 08:44 | NUR ---
DC plan Pt just worked with PT. Able to ambulate small loop of MOC and worked on stairs. Will continue to require use of FWW. Per PT no longer requires SNF and they will recommend home PT. Will notify DONTRELL/ in rounds today. Addendum: 10/26/16 at 1130 by BRITTNY GALVIN RN Clarification - requires 24 hour care.
--- NOTE | 2016-10-26 11:43 | NUR ---
Health care directive Copy provided by , placed in hard chart.
--- NOTE | 2016-10-26 12:58 | NUR ---
Norris care at bedside. Showed how to do norris care. Reviewed use of leg bag vs drainage bag. Will need reinforcement at [place].
--- NOTE | 2016-10-26 14:21 | NUR ---
Social Work: Discharge/Multidisciplinary Rounds D: Pt discussed in am rounds with . Pt is medically stable for discharge. Plan was for pt to discharge to [facility] for further rehab however the pt worked with PT today and is ambulating back at his baseline (300+ feet); current recommendation is for HALF-WAY due to pt's cognitive issues. JOHNY has reviewed notes with admissions worker at [facility] who states that the pt no longer meets skilled need for PT or nursing and that they cannot accept. [employer] met with the patient's at bedside to discuss discharge options. is very tearful over the thought of taking the patient home. She states that she wishes that she could afford an assisted living or memory care even for respite however does not have the ability to pay for these privately. She is currently in the process of applying for [facility] and working with the MA for behavioral health counselor care. She is still interested in home health through [facility] for RN, PT, and [employer]. has signed a F2F and will place an order for [employer] to make HH arrangements for the patient. [employer] encouraged the pt's to contact the resources provided to her several days prior including adult day health program, in-home caregiving and [facility]. She states that she will do these things. At this time, the patient's states that she would like to appeal the patient's discharge. [employer] has alerted the RN who will coordinate this. A: Pt who no longer meets criteria for skilled rehab and will likely discharge home with HH P: Anticipate pt to discharge home with [facility] for RN, PT, [employer]; Case management to provide referral to [facility] once order is received. Spouse is appealing the patient's discharge. JOHNY Kaplan
[2016-10-26] MEDS ORDERED: ATOR20TA65 PO (14:22)
[2016-10-26] MEDS ORDERED: METO25TA6 PO (14:22)
[2016-10-26] MEDS ORDERED: CLOP75TA28 PO (14:22)
[2016-10-26] MEDS ORDERED: LISI-571 PO (14:22)
--- NOTE | 2016-10-26 14:30 | PCM.DIMED ---
Discharge Instructions Date of Service Oct 26, 2016 Dates of Hospitalization Oct 21, 2016 at 16:35 Discharge Diagnosis Discharge Diagnosis # Acute myocardial infarction (STEMI), present on admission # Post cardiac catheterization and bare metal stent placement to LAD on by . # Acute encephalopathy, developed post-cath period, likely delirium in the setting of chronic cognitive dysfunction. Resolved. # Acute kidney injury on likely chronic kidney disease. Present on admission. Improving. # Acute post-obstructive uropathy, present on admission. Likely due to underling BPH. Post Medrano catheter placement chronic, stable: # Chronic normocytic anemia # Chronic Dementia # Hypothyroidism, chronic, presume stable. # Depression, chronic, presume stable. Diet Discharge Diet: Low fat, Low Sodium, Heart Healthy Activity Discharge Activity: Home Health Phyical Therapy Call your provider Call your provider for: Fever or Chills, Shortness of breath, Bleeding, Chest pain Patient Instructions Patient Instructions Seek immediate medical attention if any new or worsening signs or symptoms occur. Follow-up plan 1. Followup with primary care provider in 3-5 days 2. Followup with cardiology (Dr. Wall) in 2-4 weeks. [facility] [address] [facility], [facility] [address] [place] [address] Follow-up Provider: Mahamed Ferrera MD Provider: Ector Wall MD, Masoud Oct 26, 2016 14:30
--- NOTE | 2016-10-26 14:32 | NUR ---
Per RN and family report, the pt is tolerating his current dysph mech/thin liquid diet well. Rec giving meds whole in pudding. Education and handouts were provided to the pt's for diet following d/c. ST will sign off at this time as the pt is tolerating his least restrictive diet at this time. Please reorder if the pt develops new or worsening symptoms.
--- NOTE | 2016-10-26 14:53 | PCM.DC.MED ---
Discharge Summary Date of Service Oct 26, 2016 Dates of Hospitalization Date of Hospital Admission Oct 21, 2016 at 16:35 Date of Discharge: Oct 26, 2016 Providers: Admitting Physician: Vern Colorado MD Primary Care Physician: Mahamed Ferrera MD Attending Physician: Juan Carlos Springer Diagnosis at Time of Discharge Diagnosis at Time of Discharge # Acute myocardial infarction (STEMI), present on admission # Post cardiac catheterization and bare metal stent placement to LAD on by . # Acute encephalopathy, developed post-cath period, likely delirium in the setting of chronic cognitive dysfunction. Resolved. # Acute kidney injury on likely chronic kidney disease. Present on admission. Improving. # Acute post-obstructive uropathy, present on admission. Likely due to underling BPH. Post Medrano catheter placement chronic, stable: # Chronic normocytic anemia # Chronic Dementia # Hypothyroidism, chronic, presume stable. # Depression, chronic, presume stable. Consultations 1. Cardiology ([facility]) Procedures XRay, CTs & MRIs PROCEDURE: CT BRAIN WITHOUT CONTRAST IMPRESSION: Mild microvascular atherosclerotic change in the deep white matter of each hemisphere, no mass or stroke is found, no intracranial hemorrhage is suspected. Dictated by: Ravi Johnson M.D. on 10/24/2016 at 13:15 Date of Service: 10/24/16 1734 PROCEDURE: X-RAY CHEST ONE VIEW, PORTABLE ([id number]) I IMPRESSION: Increased pulmonary vascularity suggestive of edema. In addition, there is likely a trace left effusion as well focal left basilar opacity possibly representing focal fluid, atelectasis or potentially developing airspace disease such as pneumonia. Dictated by: Katia Carmona M.D. on 10/24/2016 at 18:55 Approved by: Katia Carmona M.D. on 10/24/2016 at 18:56 ECG 12 Lead Sinus rhythm at 76. ST-segment elevation in anterolateral leads. Invasive Procedures INTERVENTIONAL CARDIAC CATHETERIZATION DATE OF SERVICE: 10/21/2016 PROCEDURE: 1. Selective right and left coronary angiography. 2. Left heart catheterization. 3. Percutaneous intervention on the LAD. INTERVENTIONAL REPORT: We then proceeded ahead with an intervention on the LAD. This was balloon dilated and then stented with a 3.0 x 15 mm vision bare metal stent. The reason I chose a bare metal stent is because there was concern about patient's compliance and I did not wish to subject him to long-term dual antiplatelet therapy. Ector Wall MD 10/23/16 0914 Brief History As noted in H&P by Dr. Rowe: Mitch Harmon is a 76 yo male with history of dementia, depression, and hypothyroidism who was transferred from his PCP office on [facility] via EMS for abnormal EKG. Patient has severe dementia and does not recall what happened. History is obtained through his . Apparently, the patient has had cold symptoms for 3 weeks. He went to his PCP's office for a routine checkup today. They were having a hard time taking his BP so they did an EKG, which showed acute anterolateral ST-segment elevation. Rate of 76. Patient's reports that the patient had some SOB, dizziness nausea, and vomiting x1 this morning. He told her that his chest "yi hurts," but was not in any distress. They deny history of cardiovascular disease or any similar symptoms in the past. The patient underwent cardiac catheterization and had a stent placement in the LAD. He denies any symptoms currently. No nausea, vomiting, headache, fever, chills, CP, or SOB. He takes Citalopram, baby ASA, and Levothyroxine at home. He used to take BP medication in the past but stopped for a long time since his BP has been normal. Patient is not on any medication for dementia. Hospital Course # Acute STEMI, present on admission (POA) - s/p cardiac catheterization and bare metal stent on LAD on 10/21/16 by . Patient was started on Aspirin and Plavix, BB, ACEI. - pt remained asymptomatic, no complication from cath noticed. - Continued telemetry # Acute encephalopathy, developed post-cath period, likely delirium in the setting of chronic cognitive dysfunction, no focal deficit noticed on exam, CT brain revealed mild microvascular atherosclerotic change in the deep white matter of each hemisphere, no mass or stroke is found, no intracranial hemorrhage is suspected. - pt remained neurologically intact, however required 1:1 until 10/25/16, which delayed d/c # Sore throat, POA. Resolved. - Swallow eval by speech. - Cepacol PRN sore throat. # Renal insufficiency, unknown acuity, POA, likely CKD, however No known history of kidney disease, but no available previous labs to compared. Cr 1.66 on admission - Renal got worse during this hospital, likely due to contrast load from cath or post-obstructive uropathy. Improved back to admission rate by day of discharge - D/Bryce IVF given crackles on lung exam that required Lasix. Encouraged oral hydration. - Avoid nephrotoxic drugs - Further followup as outpatient # Acute post-obstructive uropathy,POA, likely due to underling BPH - Continued flomax - Further followup and removal of Medrano likely to be done as outpatient after discharge. chronic, stable Normocytic anemia, POA, active. - unknown acuity. Hgb 8.7 on admission. H/H stable. - Patient is asymptomatic otherwise. - Follow clinically. Dementia, severe, chronic. - Patient is not on any medication. Hypothyroidism, chronic, presume stable. - Follow up with PCP as outpatient. Depression, chronic, presume stable. - Resume home Citalopram Exam Vital Signs (Last) Date Time Temp Pulse Resp B/P Pulse Ox O2 Delivery O2 Flow Rate FiO2 10/26/16 12:56 36.5 90 18 97/58 97 Room Air 10/23/16 09:18 2.00 Test 10/21/16 15:26 10/21/16 15:29 10/21/16 22:25 10/22/16 02:55 Prothrombin Time 12.1sec (8.1-12.5) Prothromb Time International Ratio 1.13ratio Hold Red Top Tube Received (Received) Hold [place] Top Tube Received (Received) Hold [place] Top Tube Received (Received) Procalcitonin 0.22ng/mL (0.00-0.08) Triglycerides Level 50mg/dL (0-149) Cholesterol Level 198mg/dL (100-199) LDL Cholesterol, Calculated 121.000mg/dL (0-99) VLDL Cholesterol 10.000mg/dL HDL Cholesterol 67mg/dL (>39) Cholesterol/HDL Ratio 2.96 (0.0-4.4) Thyroid Stimulating Hormone (TSH) 0.079uIU/mL (0.450-4.500) Free Thyroxine 1.51ng/dL (0.82-1.77) Test 10/23/16 09:09 10/23/16 19:23 10/23/16 20:16 10/24/16 03:20 Troponin T 8.64ug/L (0.0-0.011) Hold Urine Received (Received) Urine Color Straw (YELLOW) Urine Appearance Hazy (CLEAR,HAZY) Urine pH 5.5 (5.0-8.0) Urine Specific [place] 1.020 (1.003-1.035) Urine Protein 30mg/dL (NEG,TRACE) Urine Glucose (UA) Negativemg/dL (NEGATIVE) Urine Ketones Negativemg/dL (NEGATIVE) Urine Occult Blood Large (NEGATIVE) Urine Nitrite Negative (NEGATIVE) Urine Bilirubin Negative (NEGATIVE) Urine Urobilinogen Normalmg/dL (NORMAL) Urine Leukocyte Esterase Trace (NEGATIVE) Urine RBC 11-50/hpf (0-2) Urine WBC 6-10/hpf (0-5) Urine Epithelial Cells Few/hpf (NONE-MOD) Urine Crystals Amorphous urates (NONE Urine Bacteria Few/hpf (NONE-FEW) Urine Hyaline Casts None/lpf (NONE) Urine Granular Casts None seen (NONE SEEN) Urine Waxy Casts None seen (NONE SEEN) Urine Red Blood Cell Casts None seen (NONE SEEN) Urine White Blood Cell Casts None seen (NONE SEEN) Urine Mucus None seen (None Seen) Urine Trichomonas None seen (NONE SEEN) Urine Yeast None (NONE SEEN) Urinalysis Comment None Urine Culture Reflexed Indicated White Blood Count 7.7th/mm3 (3.8-10.1) Red Blood Count 3.08mil/mm3 (4.40-5.80) Hemoglobin 9.7g/dL (13.8-17.2) Hematocrit 30.6% (41.0-50.0) Mean Corpuscular Volume 99.4fL (81-100) Mean Corpuscular Hemoglobin 31.5pg (27.0-35.0) Mean Corpuscular Hemoglobin Concent 31.7% (32.0-37.0) Red Cell Distribution Width 13.4% (12.3-15.4) Platelet Count 202bil/L (150-400) Neutrophils (%) (Auto) 72.9% (40-74) Lymphocytes (%) (Auto) 16.9% (14-46) Monocytes (%) (Auto) 9.7% (4-12) Eosinophils (%) (Auto) 0.4% (0-5) Basophils (%) (Auto) 0.1% (0-3) Phosphorus Level 2.7mg/dL (2.5-4.9) Test 10/24/16 16:30 10/26/16 07:47 Magnesium Level 2.1mg/dL (1.6-2.6) Sodium Level 140mEq/L (134-144) Potassium Level 4.4mEq/L (3.5-5.2) Chloride Level 106mEq/L (97-108) Carbon Dioxide Level 20mmol/L (18-29) Blood Urea Nitrogen 24mg/dL (8-27) Creatinine 1.68mg/dL (0.76-1.27) Estimat Glomerular Filtration Rate 42mL/min (>59) Glucose Level 105mg/dL (60-99) Calcium Level 8.7mg/dL (8.5-10.1) Total Bilirubin 0.3mg/dL (0.0-1.2) Aspartate Amino Transf (AST/SGOT) 44U/L (0-50) Alanine Aminotransferase (ALT/SGPT) 27U/L (0-44) Alkaline Phosphatase 51U/L (25-160) Total Protein 5.5g/dL (6.4-8.4) Albumin 3.0g/dL (3.4-5.0) Discharge Medications Discharge Medications Aspirin (Aspirin) 81 Mg Tablet 81 MG PO DAILY (Reported) Atorvastatin Calcium (Atorvastatin Calcium) 20 Mg Tablet 40 MG PO HS Prescribed by: JUAN CARLSO SPRINGER MD Citalopram (Citalopram) 40 Mg Tablet 40 MG PO DAILY (Reported) Clopidogrel (Clopidogrel) 75 Mg Tablet 75 MG PO DAILY Prescribed by: JUAN CARLOS SPRINGER MD Levothyroxine (Levothyroxine) 100 Mcg Tablet 100 MCG PO DAILY (Reported) Lisinopril (Lisinopril) 5 Mg Tablet 2.5 MG PO DAILY Prescribed by: JUAN CARLOS SPRINGER MD Metoprolol Tartrate (Metoprolol Tartrate) 25 Mg Tablet 12.5 MG PO BID Prescribed by: JUAN CARLOS SPRINGER MD Followup Plan Disposition: Home with home health Follow-up plan 1. Followup with primary care provider in 3-5 days 2. Followup with cardiology (Dr. Wall) in 2-4 weeks. [facility] [address] [facility] [address] [place] [address] Discharge Diet: Low fat, Low Sodium, Heart Healthy Discharge Activity: Home Health Phyical Therapy Patient Instructions Seek immediate medical attention if any new or worsening signs or symptoms occur. Follow-up Provider: Mahamed Ferrera MD Provider: Ector Wall MD Time spent 34 min copies to: Mahamed Ferrera MD; Ector Wall MD, Masoud Oct 26, 2016 14:53
--- NOTE | 2016-10-26 16:52 | NUR ---
Mobility/behavior Pt amb with FWW, requires CGA with occas LOBx2 expecially after long rest periods. Cooperative with care, requires cues to leave norris securing device in place, gown on and tele on. Up in chair about 2 hours when here. Reports feeling tired today, took frequent rest periods.
--- NOTE | 2016-10-26 17:36 | NUR ---
Mobility Pt getting up out of bed per self. RN into room, pt stating just getting up. Able to ambulate 600 feet, with FWW, SBA with minimal SOB. No c/o dizziness. Upon return to room pt able to amb to BR w/SBA without walker. tolerated well.
--- NOTE | 2016-10-26 18:45 | NUR ---
SOB Pt with head off of bed, went to check on pt c/o SOB. lasted <1 minute, VSS reports "this happens once in a while" faint crackles bilat lower lobes.
--- NOTE | 2016-10-26 19:56 | NUR ---
Case Management D: has written the d/c. Pt's anjel has appealed through [employer]. [phone]. Clinicals have been faxed. Addendum: 10/26/16 at 1999 by MARYBETH EDUARDO SS KILEY powell.
[2016-10-27] VITALS (8 sets, daily range): BP systolic 102–117; BP diastolic 64–72; PULSE 60–95; RESP 17–20; O2SAT 94–100
[2016-10-27] MEDS: Heparin 5,000 Unit/mL Inj SUBQ SCH ×3 (04:30→18:33)
--- NOTE | 2016-10-27 04:35 | NUR ---
Mobility Pt. has been up in the BR and ambulated in rm with 1 PA, confused but easily redirected, calm and pleasant to staff, able to rest and sleep most of the night, cuco alarm in place, hourly checks, VSS afebrile, all needs attended.
--- NOTE | 2016-10-27 11:00 | NUR ---
Mobility. Sat up in chair from 8-11 AM. Amb with SBA around full loop of MOC - 600ft. Bumped into an object x1, otherwise steady on feet.
--- NOTE | 2016-10-27 11:48 | PCM.PNMED ---
Subjective Date of Service Oct 27, 2016 Subjective Patient reports no overnight events. Is pleasant and answering questions. Denies any chest pain. Has been ambulating without assistance up and down hallways. Exam Vital Signs Vital Sign - Last Date Time Temp Pulse Resp B/P Pulse Ox O2 Delivery O2 Flow Rate FiO2 10/27/16 09:54 67 10/27/16 08:20 37.0 20 102/66 94 Room Air 10/23/16 09:18 2.00 Intake and Output 10/26/16 10/26/16 10/27/16 Cumulative From/Thru 15:00 23:00 07:00 10/21/16 16:19 - 10/27/16 05:50 Intake Total 500 ml 200 ml 6401 ml Output Total 250 ml 420 ml 4995 ml Balance 250 ml -220 ml 1406 ml Intake Oral 500 ml 200 ml 5006 ml IV Total 0 ml 1395 ml Output Urine Total 250 ml 420 ml 4995 ml # Bowel Movements 5 1 9 Exam Gen: NAD, AOx1-2. Pleasant, answers questions. HEENT: NCAT, PERRLA, EOMI, MMM, sclera anicteric. Neck: Soft, supple, symmetrical, no thyromegaly/JVD/LAD. Resp: CTAB, no R/R/W. CV: RRR, nl S1/S2, no M/R/G, Abd: Soft, (+) BS, no guarding/rebound/organomegaly. Ext: +PP, -edema Skin: warm/dry/intact Neuro/Psych: No focal deficits, CN II-XII grossly intact IVs and Medications Medications Reviewed: Medications were reviewed in detail Lab and Diagnostics Result Diagram: 10/24/16 0320 10/26/16 0747 X-Rays, CTs and MRIs PROCEDURE: CT BRAIN WITHOUT CONTRAST IMPRESSION: Mild microvascular atherosclerotic change in the deep white matter of each hemisphere, no mass or stroke is found, no intracranial hemorrhage is suspected. Dictated by: Ravi Johnson M.D. on 10/24/2016 at 13:15 Date of Service: 10/24/16 8639 PROCEDURE: X-RAY CHEST ONE VIEW, PORTABLE ([id number]) I IMPRESSION: Increased pulmonary vascularity suggestive of edema. In addition, there is likely a trace left effusion as well focal left basilar opacity possibly representing focal fluid, atelectasis or potentially developing airspace disease such as pneumonia. Dictated by: Katia Carmona M.D. on 10/24/2016 at 18:55 Approved by: Katia Carmona M.D. on 10/24/2016 at 18:56 12-lead ECG Sinus rhythm at 76. ST-segment elevation in anterolateral leads. Assessment & Plan 76 yo male with history of dementia, depression, and hypothyroidism who was transferred from his PCP office on [facility] via EMS for STEMI onset prior to arrival s/p cardiac catheterization and bare metal stent on LAD on 10/21/16 # Acute STEMI, present on admission (POA) - s/p cardiac catheterization and bare metal stent on LAD on 10/21/16 by . Patient was started on Aspirin and Plavix, BB, ACEI. - pt remained asymptomatic, no complication from cath noticed. - Continued telemetry # Acute encephalopathy, developed post-cath period, likely delirium in the setting of chronic cognitive dysfunction, no focal deficit noticed on exam, CT brain revealed mild microvascular atherosclerotic change in the deep white matter of each hemisphere, no mass or stroke is found, no intracranial hemorrhage is suspected. - pt remained neurologically intact, however required 1:1 until 10/25/16, which delayed d/c # Sore throat, POA. Resolved. - Swallow eval by speech. - Cepacol PRN sore throat. # Renal insufficiency, unknown acuity, POA, likely CKD, however No known history of kidney disease, but no available previous labs to compared. Cr 1.66 on admission, and is stable with serum creatinine of 1.68 on 10/27 - Renal got worse during this hospital, likely due to contrast load from cath or post-obstructive uropathy. Improved back to admission rate by day of discharge - D/Bryce IVF given crackles on lung exam that required Lasix. Encouraged oral hydration. - Avoid nephrotoxic drugs - Further followup as outpatient with PCP. # Acute post-obstructive uropathy,POA, likely due to underling BPH - Continued flomax - Further followup and removal of Medrano likely to be done as outpatient after discharge. chronic, stable Normocytic anemia, POA, active. - unknown acuity. Hgb 8.7 on admission. H/H stable. - Patient is asymptomatic otherwise. - Follow clinically. Dementia, severe, chronic. - Patient is not on any medication. Requires 24-hour care which is provided by . Hypothyroidism, chronic, presume stable. - Follow up with PCP as outpatient. Depression, chronic, presume stable. - Resume home Citalopram Pain Evaluation: Adequate Pain Control GI Prophylaxis: H2 ronda VTE Prophylaxis: Sub-Q Heparin (Unfractionated) VTE Mechanical Devices: Anti-Embolic stockings Resuscitation Status: DNR/DNI:Do Not Resuscitate/Intubate Jona Roach MD Oct 27, 2016 11:48
--- NOTE | 2016-10-27 15:01 | NUR ---
spiritual care: pt request conversational visit. pt shared personal history including painful memories and his life changes since quitting drinking. Pt shared his current social isolation and thoughts about facing .
--- NOTE | 2016-10-27 16:33 | NUR ---
Social Work: Continued Discharge Planning D: EMR reviewed. Pt to go home with YARITZA RN PT WEATHER TEACHER. HH order received. Choice list provided. Pt chose [facility]. F2F completed and picked-up by David. Access given. Pt appealed discharge. SW to follow A: Pt for whom HH has been ordered by P: Pt appealed discharge. Pt to open with [facility] RN PT WEATHER TEACHER. F2F completed and retrieved by David. Access give. Danita Flores WEATHER TEACHER
--- NOTE | 2016-10-27 17:00 | NUR ---
Behavior/norris/pain pt cooperative with care. Impulsive - gets OOB indep without regard to norris cath. Pulls at tele and norrsi occas thru-out day. Asking about shoes and wallet. Unaware of why he is here, alert to self only. 1700 Mitchell GUZMAN, tip intact. Tolerated well. c/o low back pain this am, relieved with tylenol.
[2016-10-28] VITALS (7 sets, daily range): BP systolic 114–121; BP diastolic 70–75; PULSE 63–71; RESP 16–18; O2SAT 94–98
[2016-10-28] MEDS: Heparin 5,000 Unit/mL Inj SUBQ SCH ×3 (00:51→16:38)
[2016-10-28] MEDS ORDERED: Lidocaine 2% 6mL Topical Jelly TOPICAL ONE (02:10)
--- NOTE | 2016-10-28 06:29 | NUR ---
Voiding Trial/Behavior Assumed pt care at 1900, pt alert to self only, impulsive,bed alarm on at all times, norris dc'd 10/27 at 1700 by day nurse, voiding trial tonight, serial pre and post void residuals done (see GI/ assessments,for details), not needing restart of norris tonight, call light in reach at all times, room close to nurses station.
--- NOTE | 2016-10-28 11:47 | NUR ---
Activity/DC Plan Patient tolerated several loops today with no difficulty, gait steady. Denies any discomfort. Message left to 's phone numbers, but no response from her yet. Patient very pleasant just wondering why his is and wanting to go home. Easily redirected. Patient voiding freely post catheter removal, Dr. Roach aware. Will continue to monitor. Addendum: 10/28/16 at 1308 by JAHAIRA ALVARENGA RN Received a call back from Candice () she will come and take patient home tomorrow before noon. We will clarify with PT if patient needed a FWW to go home with. Will follow up.
--- NOTE | 2016-10-28 13:28 | NUR ---
Case Management: Phone call to Candice Harmon to inform her of [facility] decision that pt is ready for d/c. She plans to pick Mitch up at 0900 on 10/29/16. Susy MCMAHAN RN
--- NOTE | 2016-10-28 15:11 | NUR ---
spiritual care: follow visit attempt; pt sleeping. Caring supervisor Jaen available for visit this afternoon.
--- NOTE | 2016-10-28 16:06 | NUR ---
Social Work- Readiness for Discharge Data: EMR reviewed. Pt is on day 7 of hospitalization for STEMI. Pt is medically ready for discharge. Pt's [facility] appeal has come back and pt is medically ready for discharge. Pt's aware of this. Per notes, pt to be picked up tomorrow at 9 am. SW stopped by pt's room to check in with pt. Pt reports feeling well but tired. T/C to David Murillo at [facility] regarding pt's discharge tomorrow. David is agreeable to pt's discharge tomorrow. All updated and agreeable to plan. SW will continue to follow. Assessment: Pt for whom RN PT THIRD RAIL INSTALLER is medically indicated. Plan: Pt to discharge home with via POV and [facility] RN PT THIRD RAIL INSTALLER tomorrow morning at 9 am. All updated and agreeable to plan. SW will continue to follow. Jennifer Mitchell MSW
--- NOTE | 2016-10-28 16:20 | PCM.PNMED ---
Subjective Date of Service Oct 28, 2016 Subjective Pt had no overnight events. Passed voiding trial and has not needed norris. Pt walking up/down hallways with minimal assistance. Exam Vital Signs Vital Sign - Last Date Time Temp Pulse Resp B/P Pulse Ox O2 Delivery O2 Flow Rate FiO2 10/28/16 15:01 36.5 68 18 116/70 96 Room Air 10/23/16 09:18 2.00 Intake and Output 10/27/16 10/27/16 10/28/16 Cumulative From/Thru 15:00 23:00 07:00 10/21/16 16:19 - 10/28/16 06:02 Intake Total 424 ml 50 ml 6875 ml Output Total 250 ml 150 ml 5395 ml Balance 174 ml -100 ml 1480 ml Intake Oral 424 ml 50 ml 5480 ml IV Total 1395 ml Output Urine Total 250 ml 150 ml 5395 ml # Bowel Movements 3 12 Exam Gen: NAD, AOx1-2. Pleasant, answers questions. HEENT: NCAT, PERRLA, EOMI, MMM, sclera anicteric. Neck: Soft, supple, symmetrical, no thyromegaly/JVD/LAD. Resp: CTAB, no R/R/W. CV: RRR, nl S1/S2, no M/R/G, Abd: Soft, (+) BS, no guarding/rebound/organomegaly. Ext: +PP, -edema Skin: warm/dry/intact Neuro/Psych: No focal deficits, CN II-XII grossly intact IVs and Medications Medications Reviewed: Medications were reviewed in detail Lab and Diagnostics Result Diagram: 10/24/16 0320 10/28/16 0730 X-Rays, CTs and MRIs PROCEDURE: CT BRAIN WITHOUT CONTRAST IMPRESSION: Mild microvascular atherosclerotic change in the deep white matter of each hemisphere, no mass or stroke is found, no intracranial hemorrhage is suspected. Dictated by: Ravi Johnson M.D. on 10/24/2016 at 13:15 Date of Service: 10/24/16 1734 PROCEDURE: X-RAY CHEST ONE VIEW, PORTABLE ([id number]) I IMPRESSION: Increased pulmonary vascularity suggestive of edema. In addition, there is likely a trace left effusion as well focal left basilar opacity possibly representing focal fluid, atelectasis or potentially developing airspace disease such as pneumonia. Dictated by: Katia Carmona M.D. on 10/24/2016 at 18:55 Approved by: Katia Carmona M.D. on 10/24/2016 at 18:56 12-lead ECG Sinus rhythm at 76. ST-segment elevation in anterolateral leads. Assessment & Plan 76 yo male with history of dementia, depression, and hypothyroidism who was transferred from his PCP office on [facility] via EMS for STEMI onset prior to arrival s/p cardiac catheterization and bare metal stent on LAD on 10/21/16 # Acute STEMI, present on admission (POA) - s/p cardiac catheterization and bare metal stent on LAD on 10/21/16 by . Patient was started on Aspirin and Plavix, BB, ACEI. - pt remained asymptomatic, no complication from cath noticed. - Continued telemetry # Acute encephalopathy, developed post-cath period, likely delirium in the setting of chronic cognitive dysfunction, no focal deficit noticed on exam, CT brain revealed mild microvascular atherosclerotic change in the deep white matter of each hemisphere, no mass or stroke is found, no intracranial hemorrhage is suspected. - pt remained neurologically intact, however required 1:1 until 10/25/16, which delayed d/c - Passed Voiding Trial 10/27 and norris has been removed. # Sore throat, POA. Resolved. - Swallow eval by speech. - Cepacol PRN sore throat. # Renal insufficiency, unknown acuity, POA, likely CKD, however No known history of kidney disease, but no available previous labs to compared. Cr 1.66 on admission, and is stable with serum creatinine of 1.68 on 10/27 - Renal got worse during this hospital, likely due to contrast load from cath or post-obstructive uropathy. Improved back to admission rate by day of discharge - D/Bryce IVF given crackles on lung exam that required Lasix. Encouraged oral hydration. - Pt serum Cr downtrending. - Avoid nephrotoxic drugs - Further followup as outpatient with PCP. # Acute post-obstructive uropathy,POA, likely due to underling BPH - Continued flomax - Passed Voiding Trial 10/27 and norris has been removed. chronic, stable Normocytic anemia, POA, active. - unknown acuity. Hgb 8.7 on admission. H/H stable. - Patient is asymptomatic otherwise. Dementia, severe, chronic. - Patient is not on any medication. Requires 24-hour care which is provided by . Hypothyroidism, chronic, presume stable. - Follow up with PCP as outpatient. Depression, chronic, presume stable. - Resume home Citalopram Dispo- initially discharge was delayed due to it being appealed by spouse. Per SW, pt's will arrange to pick him up at 9:30am. Pain Evaluation: Adequate Pain Control GI Prophylaxis: H2 ronda VTE Prophylaxis: Sub-Q Heparin (Unfractionated) VTE Mechanical Devices: Anti-Embolic stockings Resuscitation Status: DNR/DNI:Do Not Resuscitate/Intubate Jona Roach MD Oct 28, 2016 16:20
[2016-10-29] MEDS: Heparin 5,000 Unit/mL Inj SUBQ SCH ×2 (00:52→09:00)
[2016-10-29 05:20] VITALS: BP 104/63; PULSE 62; RESP 18; O2SAT 98
--- NOTE | 2016-10-29 05:48 | NUR ---
Urinary Retention 1900-noted pt up 4x to void, noted scant urine, PVR done showed >600mls, order obtained for straight in/out cath, attempted x1, resistance met/pt c/o pain, F14 norris inserted instead, glydo used for comfort, immediately drained 900 out, total of 1100 throughout night, so far with redirection, pt has not attempted to pull norris out, cuco alarm on for safety, room close to nurses station.
--- NOTE | 2016-10-29 07:17 | PCM.PNMED ---
Subjective Date of Service Oct 29, 2016 Subjective Pt had norris resinserted. PVR done showed >600mls. No other overnight issues. Exam Vital Signs Vital Sign - Last Date Time Temp Pulse Resp B/P Pulse Ox O2 Delivery O2 Flow Rate FiO2 10/29/16 05:20 36.9 62 18 104/63 98 Room Air 10/23/16 09:18 2.00 Intake and Output 10/28/16 10/28/16 10/29/16 Cumulative From/Thru 15:00 23:00 07:00 10/21/16 16:19 - 10/29/16 04:44 Intake Total 856 ml 100 ml 7831 ml Output Total 1100 ml 6495 ml Balance 856 ml -1000 ml 1336 ml Intake Oral 846 ml 100 ml 6426 ml IV Total 10 ml 1405 ml Output Urine Total 1100 ml 6495 ml # Voids 7 7 # Bowel Movements 4 16 Exam Gen: NAD, AOx1-2. Pleasant, follows commands. HEENT: NCAT, PERRLA, EOMI, MMM, sclera anicteric. Neck: Soft, supple, symmetrical, no thyromegaly/JVD/LAD. Resp: CTAB, no R/R/W. CV: RRR, nl S1/S2, no M/R/G, Abd: Soft, (+) BS, no guarding/rebound/organomegaly. Ext: +PP, -edema Skin: warm/dry/intact Neuro/Psych: No focal deficits, CN II-XII grossly intact. AOx1-2. IVs and Medications Medications Reviewed: Medications were reviewed in detail Lab and Diagnostics Result Diagram: 10/24/16 0320 10/28/16 0730 X-Rays, CTs and MRIs PROCEDURE: CT BRAIN WITHOUT CONTRAST IMPRESSION: Mild microvascular atherosclerotic change in the deep white matter of each hemisphere, no mass or stroke is found, no intracranial hemorrhage is suspected. Dictated by: Ravi Johnson M.D. on 10/24/2016 at 13:15 Date of Service: 10/24/16 3062 PROCEDURE: X-RAY CHEST ONE VIEW, PORTABLE ([id number]) I IMPRESSION: Increased pulmonary vascularity suggestive of edema. In addition, there is likely a trace left effusion as well focal left basilar opacity possibly representing focal fluid, atelectasis or potentially developing airspace disease such as pneumonia. Dictated by: Katia Carmona M.D. on 10/24/2016 at 18:55 Approved by: Katia Carmona M.D. on 10/24/2016 at 18:56 12-lead ECG Sinus rhythm at 76. ST-segment elevation in anterolateral leads. Assessment & Plan 76 yo male with history of dementia, depression, and hypothyroidism who was transferred from his PCP office on [facility] via EMS for STEMI onset prior to arrival s/p cardiac catheterization and bare metal stent on LAD on 10/21/16 # Acute STEMI, present on admission (POA) - s/p cardiac catheterization and bare metal stent on LAD on 10/21/16 by . Patient was started on Aspirin and Plavix, BB, ACEI. - pt remained asymptomatic, no complication from cath noticed. - Continued telemetry, no events. # Acute encephalopathy, developed post-cath period, likely delirium in the setting of chronic cognitive dysfunction, no focal deficit noticed on exam, CT brain revealed mild microvascular atherosclerotic change in the deep white matter of each hemisphere, no mass or stroke is found, no intracranial hemorrhage is suspected. - pt remained neurologically intact, however required 1:1 until 10/25/16, which delayed d/c - Passed Voiding Trial 10/27 and norris has been removed. - Norris had to be resinserted overnight. Will d/c hm w/ norris and follow up with PCP in few days to remove. # Sore throat, POA. Resolved. - Swallow eval by speech. - Cepacol PRN sore throat. # Renal insufficiency, unknown acuity, POA, likely CKD, however No known history of kidney disease, but no available previous labs to compared. Cr 1.66 on admission, and is stable with serum creatinine of 1.68 on 10/27 - Renal got worse during this hospital, likely due to contrast load from cath or post-obstructive uropathy. Improved back to admission rate by day of discharge - D/Bryce IVF given crackles on lung exam that required Lasix. Encouraged oral hydration. - Pt serum Cr downtrending. - Avoid nephrotoxic drugs - Further followup as outpatient with PCP. # Acute post-obstructive uropathy,POA, likely due to underling BPH - Continued flomax - Passed Voiding Trial 10/27 and norris has been removed - Norris had to be resinserted overnight. Will d/c hm w/ norris and follow up with PCP in few days to remove. . chronic, stable Normocytic anemia, POA, active. - unknown acuity. Hgb 8.7 on admission. H/H stable. - Patient is asymptomatic otherwise. Dementia, severe, chronic. - Patient is not on any medication. Requires 24-hour care which is provided by . Hypothyroidism, chronic, presume stable. - Follow up with PCP as outpatient. Depression, chronic, presume stable. - Resume home Citalopram Dispo- initially discharge was delayed due to it being appealed by spouse. Per SW, pt's will arrange to pick him up at 9:30am. Pain Evaluation: Adequate Pain Control GI Prophylaxis: H2 ronda VTE Prophylaxis: Sub-Q Heparin (Unfractionated) VTE Mechanical Devices: Anti-Embolic stockings Resuscitation Status: DNR/DNI:Do Not Resuscitate/Intubate Jona Roach MD Oct 29, 2016 07:17
--- NOTE | 2016-10-29 07:27 | PCM.DIMED ---
Discharge Instructions Date of Service Oct 29, 2016 Dates of Hospitalization Oct 21, 2016 at 16:35 Discharge Diagnosis Discharge Diagnosis # Acute myocardial infarction (STEMI), present on admission # Post cardiac catheterization and bare metal stent placement to LAD on by . # Acute encephalopathy, developed post-cath period, likely delirium in the setting of chronic cognitive dysfunction. Resolved. # Acute kidney injury on likely chronic kidney disease. Present on admission. Improving. # Acute post-obstructive uropathy, present on admission. Likely due to underling BPH. Post Norris catheter placement chronic, stable: # Chronic normocytic anemia # Chronic Dementia # Hypothyroidism, chronic, presume stable. # Depression, chronic, presume stable. Medication Instructions Additional med instructions Please fill new prescriptions and continue taking unless directed by physician. Diet Discharge Diet: Low fat, Low Sodium, Heart Healthy Activity Discharge Activity: Home Health Phyical Therapy Call your provider Call your provider for: Fever or Chills, Shortness of breath, Bleeding, Chest pain Patient Instructions Patient Instructions Seek immediate medical attention if any new or worsening signs or symptoms occur. Nurse will provide norris catheter care. Follow up with your primary doctor in 3 days to remove. Follow-up plan 1. Followup with primary care provider in 3-5 days 2. Followup with cardiology (Dr. Wall) in 2-4 weeks. [facility] [address] [address] Follow-up Provider: Mahamed Ferrera MD Follow-up with PCP in: 1 week Provider: Ector Wall MD Follow-up in: 2 weeks Jona Roach MD Oct 29, 2016 07:27
[2016-10-29] MEDS ORDERED: ATOR20TA65 PO (07:29)
[2016-10-29] MEDS ORDERED: LISI-571 PO (07:29)
[2016-10-29] MEDS ORDERED: CLOP75TA28 PO (07:29)
[2016-10-29] MEDS ORDERED: METO25TA6 PO (07:29)
[2016-10-29 09:10] VITALS: BP 106/61; PULSE 62; RESP 16; O2SAT 97
--- NOTE | 2016-10-29 10:38 | PCM.DC.MED ---
Discharge Summary Date of Service Oct 29, 2016 Dates of Hospitalization Date of Hospital Admission Oct 21, 2016 at 16:35 Date of Discharge: Oct 26, 2016 Providers: Admitting Physician: Vern Colorado MD Primary Care Physician: Mahamed Ferrera MD Attending Physician: Krista Felix MD Diagnosis at Time of Discharge Diagnosis at Time of Discharge # Acute myocardial infarction (STEMI), present on admission # Post cardiac catheterization and bare metal stent placement to [facility] on by . # Acute encephalopathy, developed post-cath period, likely delirium in the setting of chronic cognitive dysfunction. Resolved. # Acute kidney injury on likely chronic kidney disease. Present on admission. Improving. # Acute post-obstructive uropathy, present on admission. Likely due to underling BPH. Post Norris catheter placement chronic, stable: # Chronic normocytic anemia # Chronic Dementia # Hypothyroidism, chronic, presume stable. # Depression, chronic, presume stable. Consultations 1. Cardiology ([facility]) Procedures XRay, CTs & MRIs PROCEDURE: CT BRAIN WITHOUT CONTRAST IMPRESSION: Mild microvascular atherosclerotic change in the deep white matter of each hemisphere, no mass or stroke is found, no intracranial hemorrhage is suspected. Dictated by: Ravi Johnson M.D. on 10/24/2016 at 13:15 Date of Service: 10/24/16 1734 PROCEDURE: X-RAY CHEST ONE VIEW, PORTABLE ([id number]) I IMPRESSION: Increased pulmonary vascularity suggestive of edema. In addition, there is likely a trace left effusion as well focal left basilar opacity possibly representing focal fluid, atelectasis or potentially developing airspace disease such as pneumonia. Dictated by: Katia Carmona M.D. on 10/24/2016 at 18:55 Approved by: Katia Carmona M.D. on 10/24/2016 at 18:56 ECG 12 Lead Sinus rhythm at 76. ST-segment elevation in anterolateral leads. Brief History As noted in H&P by Dr. Rowe: Mitch Harmon is a 76 yo male with history of dementia, depression, and hypothyroidism who was transferred from his PCP office on [facility] via EMS for abnormal EKG. Patient has severe dementia and does not recall what happened. History is obtained through his . Apparently, the patient has had cold symptoms for 3 weeks. He went to his PCP's office for a routine checkup today. They were having a hard time taking his BP so they did an EKG, which showed acute anterolateral ST-segment elevation. Rate of 76. Patient's reports that the patient had some SOB, dizziness nausea, and vomiting x1 this morning. He told her that his chest "yi hurts," but was not in any distress. They deny history of cardiovascular disease or any similar symptoms in the past. The patient underwent cardiac catheterization and had a stent placement in the LAD. He denies any symptoms currently. No nausea, vomiting, headache, fever, chills, CP, or SOB. He takes Citalopram, baby ASA, and Levothyroxine at home. He used to take BP medication in the past but stopped for a long time since his BP has been normal. Patient is not on any medication for dementia. Hospital Course 76 yo male with history of dementia, depression, and hypothyroidism who was transferred from his PCP office on [facility] via EMS for STEMI onset prior to arrival s/p cardiac catheterization and bare metal stent on LAD on 10/21/16 # Acute STEMI, present on admission (POA) - s/p cardiac catheterization and bare metal stent on LAD on 10/21/16 by . Patient was started on Aspirin and Plavix, BB, ACEI. - pt remained asymptomatic, no complication from cath noticed. - Continued telemetry, no events. # Acute encephalopathy, developed post-cath period, likely delirium in the setting of chronic cognitive dysfunction, no focal deficit noticed on exam, CT brain revealed mild microvascular atherosclerotic change in the deep white matter of each hemisphere, no mass or stroke is found, no intracranial hemorrhage is suspected. - pt remained neurologically intact, however required 1:1 until 10/25/16, which delayed d/c - Passed Voiding Trial 10/27 and norris has been removed. - Norris had to be resinserted overnight. Will d/c hm w/ norris and follow up with PCP in few days to remove. # Sore throat, POA. Resolved. - Swallow eval by speech. - Cepacol PRN sore throat. # Renal insufficiency, unknown acuity, POA, likely CKD, however No known history of kidney disease, but no available previous labs to compared. Cr 1.66 on admission, and is stable with serum creatinine of 1.68 on 10/27 - Renal got worse during this hospital, likely due to contrast load from cath or post-obstructive uropathy. Improved back to admission rate by day of discharge - D/Bryce IVF given crackles on lung exam that required Lasix. Encouraged oral hydration. - Pt serum Cr downtrending. - Avoid nephrotoxic drugs - Further followup as outpatient with PCP. # Acute post-obstructive uropathy,POA, likely due to underling BPH - Continued flomax - Passed Voiding Trial 10/27 and norris has been removed - Norris had to be resinserted overnight. Will d/c hm w/ norris and follow up with PCP in few days to remove. . chronic, stable Normocytic anemia, POA, active. - unknown acuity. Hgb 8.7 on admission. H/H stable. - Patient is asymptomatic otherwise. Dementia, severe, chronic. - Patient is not on any medication. Requires 24-hour care which is provided by . Hypothyroidism, chronic, presume stable. - Follow up with PCP as outpatient. Depression, chronic, presume stable. - Resume home Citalopram Dispo- initially discharge was delayed due to it being appealed by spouse. Per DONTRELL, pt's will arrange to pick him up at 9:30am. Exam Vital Signs (Last) Date Time Temp Pulse Resp B/P Pulse Ox O2 Delivery O2 Flow Rate FiO2 10/29/16 05:20 36.9 62 18 104/63 98 Room Air 10/23/16 09:18 2.00 Test 10/21/16 15:26 10/21/16 15:29 10/21/16 22:25 10/22/16 02:55 Prothrombin Time 12.1sec (8.1-12.5) Prothromb Time International Ratio 1.13ratio Hold Red Top Tube Received (Received) Hold [place] Top Tube Received (Received) Hold Greer Top Tube Received (Received) Procalcitonin 0.22ng/mL (0.00-0.08) Triglycerides Level 50mg/dL (0-149) Cholesterol Level 198mg/dL (100-199) LDL Cholesterol, Calculated 121.000mg/dL (0-99) VLDL Cholesterol 10.000mg/dL HDL Cholesterol 67mg/dL (>39) Cholesterol/HDL Ratio 2.96 (0.0-4.4) Thyroid Stimulating Hormone (TSH) 0.079uIU/mL (0.450-4.500) Free Thyroxine 1.51ng/dL (0.82-1.77) Test 10/23/16 09:09 10/23/16 19:23 10/23/16 20:16 10/24/16 03:20 Troponin T 8.64ug/L (0.0-0.011) Hold Urine Received (Received) Urine Color Straw (YELLOW) Urine Appearance Hazy (CLEAR,HAZY) Urine pH 5.5 (5.0-8.0) Urine Specific Jackson 1.020 (1.003-1.035) Urine Protein 30mg/dL (NEG,TRACE) Urine Glucose (UA) Negativemg/dL (NEGATIVE) Urine Ketones Negativemg/dL (NEGATIVE) Urine Occult Blood Large (NEGATIVE) Urine Nitrite Negative (NEGATIVE) Urine Bilirubin Negative (NEGATIVE) Urine Urobilinogen Normalmg/dL (NORMAL) Urine Leukocyte Esterase Trace (NEGATIVE) Urine RBC 11-50/hpf (0-2) Urine WBC 6-10/hpf (0-5) Urine Epithelial Cells Few/hpf (NONE-MOD) Urine Crystals Amorphous urates (NONE Urine Bacteria Few/hpf (NONE-FEW) Urine Hyaline Casts None/lpf (NONE) Urine Granular Casts None seen (NONE SEEN) Urine Waxy Casts None seen (NONE SEEN) Urine Red Blood Cell Casts None seen (NONE SEEN) Urine White Blood Cell Casts None seen (NONE SEEN) Urine Mucus None seen (None Seen) Urine Trichomonas None seen (NONE SEEN) Urine Yeast None (NONE SEEN) Urinalysis Comment None Urine Culture Reflexed Indicated White Blood Count 7.7th/mm3 (3.8-10.1) Red Blood Count 3.08mil/mm3 (4.40-5.80) Hemoglobin 9.7g/dL (13.8-17.2) Hematocrit 30.6% (41.0-50.0) Mean Corpuscular Volume 99.4fL (81-100) Mean Corpuscular Hemoglobin 31.5pg (27.0-35.0) Mean Corpuscular Hemoglobin Concent 31.7% (32.0-37.0) Red Cell Distribution Width 13.4% (12.3-15.4) Platelet Count 202bil/L (150-400) Neutrophils (%) (Auto) 72.9% (40-74) Lymphocytes (%) (Auto) 16.9% (14-46) Monocytes (%) (Auto) 9.7% (4-12) Eosinophils (%) (Auto) 0.4% (0-5) Basophils (%) (Auto) 0.1% (0-3) Phosphorus Level 2.7mg/dL (2.5-4.9) Test 10/24/16 16:30 10/26/16 07:47 10/29/16 07:15 Magnesium Level 2.1mg/dL (1.6-2.6) Total Bilirubin 0.3mg/dL (0.0-1.2) Aspartate Amino Transf (AST/SGOT) 44U/L (0-50) Alanine Aminotransferase (ALT/SGPT) 27U/L (0-44) Alkaline Phosphatase 51U/L (25-160) Total Protein 5.5g/dL (6.4-8.4) Albumin 3.0g/dL (3.4-5.0) Sodium Level 140mEq/L (134-144) Potassium Level 5.4mEq/L (3.5-5.2) Chloride Level 103mEq/L (97-108) Carbon Dioxide Level 23mmol/L (18-29) Blood Urea Nitrogen 23mg/dL (8-27) Creatinine 1.80mg/dL (0.76-1.27) Estimat Glomerular Filtration Rate 39mL/min (>59) Glucose Level 95mg/dL (60-99) Calcium Level 9.0mg/dL (8.5-10.1) Discharge Medications Discharge Medications Aspirin (Aspirin) 81 Mg Tablet 81 MG PO DAILY (Reported) Atorvastatin Calcium (Atorvastatin Calcium) 20 Mg Tablet 40 MG PO HS Prescribed by: KRISTA FELIX MD Citalopram (Citalopram) 40 Mg Tablet 40 MG PO DAILY (Reported) Clopidogrel (Clopidogrel) 75 Mg Tablet 75 MG PO DAILY Prescribed by: KRISTA FELIX MD Levothyroxine (Levothyroxine) 100 Mcg Tablet 100 MCG PO DAILY (Reported) Lisinopril (Lisinopril) 5 Mg Tablet 2.5 MG PO DAILY Prescribed by: KRISTA FELIX MD Metoprolol Tartrate (Metoprolol Tartrate) 25 Mg Tablet 12.5 MG PO BID Prescribed by: KRISTA FELIX MD Additional med instructions Please fill new prescriptions and continue taking unless directed by physician. Followup Plan Follow-up plan 1. Followup with primary care provider in 3-5 days 2. Followup with cardiology (Dr. Wall) in 2-4 weeks. [facility] [address] [facility], [facility] [address] [place] [address] Discharge Diet: Low fat, Low Sodium, Heart Healthy Discharge Activity: Home Health Phyical Therapy Patient Instructions Seek immediate medical attention if any new or worsening signs or symptoms occur. Nurse will provide norris catheter care. Follow up with your primary doctor in 3 days to remove. Follow-up Provider: Mahamed Ferrera MD Follow-up with PCP in: 1 week Provider: Ector Wall MD Follow-up in: 2 weeks Krista Felix MD Oct 29, 2016 10:38
--- NOTE | 2016-10-29 10:58 | NUR ---
Social Work: Discharge / Multidisciplinary Rounds Data: Pt is on day 8 of hospitalization. EMR reviewed. Pt discussed in rounds, states pt is ready for d/c with disposition with home health. D/C orders are in. Pt's spouse picked up pt. Ciera VIGIL has completed F2F. No further d/c planning needs at this time. Assessment: Pt with caregiving at baseline. Plan: Pt discharged home via POV today with his with Ciera VIGIL for RN, PT, [employer] SAL[employer]IST. No further d/c planning needs at this time. Taylor Sutton, CUSTOMER SALES SPECIALIST
--- NOTE | 2016-10-29 12:28 | NUR ---
Discharge Reviewed DC instructions with and patient. Reviewed in depth norris care, how to switch from leg bag to drainage bag. Hands on demonstration provided, including cath care. Answered all question, offered reassurance. Taken out in w/ch to home in private vehicle with . Leg bag in place. Shift report: Pt c/o being tired, SBA to BR. Tolerated 50% of breakfast with ice cream for dessert.
== END 2016-10-29 10:35 | disposition home health service (06) | DRG 248 ==
LOC: EDUNIT# 14:09 → EDBD 14:09 → EDSTATUS 14:33 → SOUO 16:11 → CCU 16:35 → PCC 10-22 09:35 → MOC 10-25 08:34
PROVIDERS: ADMIT Hospitalist; ATTEND Hospitalist
PROC: 02703DZ Dilation of Coronary Artery, One Artery with Intraluminal Device, Percutaneous Approach (ICD-10-PCS; principal; 2016-10-21)
PROC: 4A023N7 Measurement of Cardiac Sampling and Pressure, Left Heart, Percutaneous Approach (ICD-10-PCS; 2016-10-21)
PROC: B2111ZZ Fluoroscopy of Multiple Coronary Arteries using Low Osmolar Contrast (ICD-10-PCS; 2016-10-21)
PROC: B2161ZZ Fluoroscopy of Right and Left Heart using Low Osmolar Contrast (ICD-10-PCS; 2016-10-21)
DX: I21.02 ST elevation (STEMI) myocardial infarction involving left anterior descending coronary artery (principal); G93.40 Encephalopathy, unspecified; N17.9 Acute kidney failure, unspecified; F03.91 Unspecified dementia, unspecified severity, with behavioral disturbance; Z85.830 Personal history of malignant neoplasm of bone; D64.9 Anemia, unspecified; N13.9 Obstructive and reflux uropathy, unspecified; E03.9 Hypothyroidism, unspecified; F32.9 Major depressive disorder, single episode, unspecified